=== PATIENT | male | born 1980 ===

== ENCOUNTER 2017-07-27 21:47 | Inpatient (IN) | payer OTHER ==
[2017-07-27] MEDS ORDERED: HYDROmorphone 0.5 mg/0.5 ml ISec IVP STA (22:05)
--- NOTE | 2017-07-27 22:33 | ED PDOC ---
Arrival/HPI - General Chief Complaint: Abdominal Pain Time Seen by Provider: 07/27/17 21:53 Historian: Patient - History of Present Illness Narrative History of Present Illness (Text): 07/27/17 22:05 36 year old male who presents to the Emergency department complaining of abdominal pain and hematochezia. Patient states 1 week prior he began experiencing bloody bowel movements, which has been consistent over the past week. Patient states 2 hours prior to arrival he had severe left flank pain radiating to left inguinal region. Patient reports associated chest tightness. Patient rates pain 10/10. Patient denies any dysuria, fever, chills, nausea, vomiting, or any other complaints. Time/Duration: 1 week Symptom Onset: Gradual Symptom Course: Unchanged Activities at Onset: Light Context: Home Past Medical History - Provider Review Nursing Documentation Reviewed: Yes - Infectious Disease Hx of Infectious Diseases: None - Cardiac Hx Cardiac Disorders: Yes Hx Heart Murmur: Yes Other/Comment: left ventricle blockage - Pulmonary Hx Respiratory Disorders: No - Neurological Hx Neurological Disorder: No - HEENT Hx HEENT Disorder: No - Renal Hx Renal Disorder: No - Endocrine/Metabolic Hx Endocrine Disorders: No - Hematological/Oncological Hx Blood Disorders: No - Integumentary Hx Dermatological Disorder: No Hx Basal Cell Carcinoma: No - Musculoskeletal/Rheumatological Hx Musculoskeletal Disorders: No - Gastrointestinal Hx Gastrointestinal Disorders: No Other/Comment: appendectomy - Genitourinary/Gynecological Hx Genitourinary Disorders: No - Psychiatric Hx Psychophysiologic Disorder: No Hx Substance Use: No - Surgical History Hx Appendectomy: Yes Other/Comment: vasectomy 2009, nose sx - Anesthesia Hx Anesthesia: Yes Hx Anesthesia Reactions: No Hx Malignant Hyperthermia: No Family/Social History - Physician Review Nursing Documentation Reviewed: Yes Family/Social History: Unknown Family HX Smoking Status: Never Smoked Hx Alcohol Use: Yes Hx Substance Use: No Allergies/Home Meds Allergies/Adverse Reactions: Allergies No Known Allergies Allergy (Verified 12/26/15 16:24) Review of Systems - Physician Review All systems were reviewed & negative as marked: Yes - Review of Systems Constitutional: Normal. absent: Fevers Eyes: Normal ENT: Normal Respiratory: Normal. absent: SOB, Cough Cardiovascular: Chest Pain Gastrointestinal: Abdominal Pain, Hematochezia. absent: Diarrhea, Nausea, Vomiting Genitourinary Male: Normal. absent: Dysuria, Frequency, Hematuria, Urinary Output Changes Musculoskeletal: Back Pain. absent: Neck Pain Skin: Normal. absent: Rash Neurological: Normal. absent: Headache, Dizziness Endocrine: Normal Hemo/Lymphatic: Normal Psychiatric: Normal Physical Exam Vital Signs Reviewed: Yes Vital Signs Temp Pulse Resp BP Pulse Ox 07/27/17 21:57 98.0 F 65 19 141/89 99 Temperature: Afebrile Blood Pressure: Normal Pulse: Regular Respiratory Rate: Normal Appearance: Positive for: Well-Appearing, Non-Toxic, Comfortable Pain Distress: None Mental Status: Positive for: Alert and Oriented X 3 - Systems Exam Head: Present: Atraumatic, Normocephalic Pupils: Present: PERRL Extroacular Muscles: Present: EOMI Conjunctiva: Present: Normal Mouth: Present: Moist Mucous Membranes Neck: Present: Normal Range of Motion Respiratory/Chest: Present: Clear to Auscultation, Good Air Exchange. No: Respiratory Distress, Accessory Muscle Use Cardiovascular: Present: Regular Rate and Rhythm, Normal S1, S2. No: Murmurs Abdomen: Present: Tenderness (Abdominal tenderness to palpation, most severe in LUQ and LLQ), Normal Bowel Sounds. No: Distention, Peritoneal Signs, Rebound Back: Present: Normal Inspection Upper Extremity: Present: Normal Inspection. No: Cyanosis, Edema Lower Extremity: Present: Normal Inspection. No: Edema Neurological: Present: GCS=15, CN II-XII Intact, Speech Normal Skin: Present: Warm, Dry, Normal Color. No: Rashes Psychiatric: Present: Alert, Oriented x 3, Normal Insight, Normal Concentration Medical Decision Making ED Course and Treatment: 07/27/17 22:05 Impression: 36 year old male complaining of blood bowel movements, left flank pain radiating to left inguinal, and chest tightness. Plan: -- Urinalysis -- Dilaudid -- Reassess and disposition Progress Notes: - Medication Orders Current Medication Orders: Discontinued Medications Hydromorphone HCl (Dilaudid) 1 mg IVP STAT STA Stop: 07/27/17 22:06 Last Admin: 07/27/17 22:13 Dose: 1 mg MELONIE Pain Assessment Document 07/27/17 22:13 ND (Rec: 07/27/17 22:14 ND [facility] [id number] Pain Reassessment Is this a pain reassessment? No Presence of Pain Presence of Pain Yes Pain Scale Used Pain Scale Used Numeric Location Left, Right or Bilateral Bilateral Pain Location Body Site Abdomen IVP Administration Document 07/27/17 22:13 ND (Rec: 07/27/17 22:14 ND [facility] [id number]) Charges for Administration # of IVP Administrations 1 - Scribe Statement The provider has reviewed the documentation as recorded by the Scribe Daniella Magana All medical record entries made by the Scribe were at my direction and personally dictated by me. I have reviewed the chart and agree that the record accurately reflects my personal performance of the history, physical exam, medical decision making, and the department course for this patient. I have also personally directed, reviewed, and agree with the discharge instructions and disposition. Disposition/Present on Arrival - Present on Arrival History of DVT/PE: No History of Uncontrolled Diabetes: No Urinary Catheter: No History of Decub. Ulcer: No History Surgical Site Infection Following: None - Disposition Forms: [employer] (Ukrainian)
--- NOTE | 2017-07-27 23:07 | ED PDOC ---
Physical Exam Vital Signs Temp Pulse Resp BP Pulse Ox 07/27/17 21:57 98.0 F 65 19 141/89 99 Medical Decision Making ED Course and Treatment: 07/27/17 23:00 Case endorsed to me by Dr. Zhu, pending UA, re-assessment, and final disposition. Pt, whose past medical history includes appendectomy, presented for left flank pain radiating to left groin. 07/28/17 05:03 CT Abdomen and Pelvis shows: Lower thorax: Bibasilar right middle nonspecific infiltrates are present, consistent with atelectasis or pneumonia. Small hiatal hernia. ABDOMEN:Limitations: Absence of IV contrast decreases sensitivity for detecting solid organ and vascular abnormality and injury. Liver: Unremarkable. Gallbladder and bile ducts: Hyperdense gallbladder sludge versus stones versus artifact. Pancreas: Unremarkable. No ductal dilation. Spleen: Unremarkable. No splenomegaly. Adrenals: Unremarkable. No mass. Kidneys and ureters: Left perinephric inflammatory change with moderate left hydroureteronephrosis and a 5 mm left upper mid ureter stone seen on image 96 series 3 and a 4 mm left mid ureteral stone seen on image 99 series 3 representing multifocal acute obstructive uropathy. Nonobstructive bilateral renal stones measuring 2-5 mm. Stomach and bowel: Diverticulosis. No obstruction. No mucosal thickening. Appendix: Appendectomy. PELVIS: Bladder: Partially distended bladder. Reproductive: Enlarged prostate gland. Vasectomy. ABDOMEN and PELVIS: Intraperitoneal space: Unremarkable. No free air. No significant fluid collection. Bones/joints: No acute fracture. No dislocation. Soft tissues: There is a fat-containing umbilical hernia. Vasculature: Unremarkable. No abdominal aortic aneurysm. Lymph nodes: Unremarkable. No enlarged lymph nodes. IMPRESSION: 1.Left perinephric inflammatory change with moderate left hydroureteronephrosis and a 5 mm left upper mid ureter stone seen on image 96 series 3 and a 4 mm left mid ureteral stone seen on image 99 series 3 representing multifocal acute obstructive uropathy. 2. Nonobstructive renal stones. 07/28/17 05:05 Case discussed with medical record transcriber production roustabout and Dr. Hernandez, who are aware and agrees with plan. Pt will be admitted to [facility] for nephrolithiasis, renal colic, and intractable pain under the hospitalist service. - Lab Interpretations Lab Results: 07/28/17 00:30 07/28/17 00:30 Lab Results 07/28/17 01:44: Urine Color Yellow, Urine Appearance Sl cloudy, Urine pH 7.0, Ur Specific [place] 1.020, Urine Protein 30 H, Urine Glucose (UA) Negative, Urine Ketones Negative, Urine Blood Large H, Urine Nitrate Negative, Urine Bilirubin Negative, Urine Urobilinogen 0.2, Ur Leukocyte Esterase Negative, Urine RBC Tntc, Urine WBC 0 - 2, Ur Epithelial Cells 0 - 2, Urine Bacteria Occ 07/28/17 00:30: WBC 11.2 H, RBC 5.10, Hgb 15.4, Hct 43.8, MCV 85.9, MCH 30.2, MCHC 35.2, RDW 12.8, Plt Count 255, MPV 9.4 07/28/17 00:30: Sodium 142, Potassium 3.8, Chloride 105, Carbon Dioxide 23, Anion Gap 18, BUN 16, Creatinine 1.1, Est GFR ( Amer) > 60, Est GFR (Non- Af Amer) > 60, Random Glucose 108, Calcium 9.8, Total Bilirubin 0.7, AST 34, ALT 62 H, Alkaline Phosphatase 82, Total Protein 7.8, Albumin 4.7, Globulin 3.2 , Albumin/Globulin Ratio 1.5, Lipase 68 I have reviewed the lab results: Yes - RAD Interpretation Radiology Orders: 07/28/17 02:38 ABD & PELVIS W/O PO OR IV CONT [CT] Stat Laborer Carpentry Dock: Radiologist - Medication Orders Current Medication Orders: Discontinued Medications Hydromorphone HCl (Dilaudid) 1 mg IVP STAT STA Stop: 07/27/17 22:06 Last Admin: 07/27/17 22:13 Dose: 1 mg MAR Pain Assessment Document 07/27/17 22:13 ND (Rec: 07/27/17 22:14 ND [facility] [id number] Pain Reassessment Is this a pain reassessment? No Presence of Pain Presence of Pain Yes Pain Scale Used Pain Scale Used Numeric Location Left, Right or Bilateral Bilateral Pain Location Body Site Abdomen IVP Administration Document 07/27/17 22:13 ND (Rec: 07/27/17 22:14 ND [facility] [id number]) Charges for Administration # of IVP Administrations 1 Hydromorphone HCl (Dilaudid) 1 mg IVP STAT STA Stop: 07/28/17 01:14 Last Admin: 07/28/17 01:44 Dose: 1 mg MAR Pain Assessment Document 07/28/17 01:44 CNR (Rec: 07/28/17 01:44 CNR [id number]) Pain Reassessment Is this a pain reassessment? Yes Location Pain Location Body Site Abdomen IVP Administration Document 07/28/17 01:44 CNR (Rec: 07/28/17 01:44 CNR [id number]) Charges for Administration # of IVP Administrations 1 Hydromorphone HCl (Dilaudid) 1 mg IVP STAT STA Stop: 07/28/17 04:11 Last Admin: 07/28/17 04:27 Dose: 1 mg MAR Pain Assessment Document 07/28/17 04:27 CNR (Rec: 07/28/17 04:27 CNR [id number]) Pain Reassessment Is this a pain reassessment? Yes IVP Administration Document 07/28/17 04:27 CNR (Rec: 07/28/17 04:27 CNR [id number]) Charges for Administration # of IVP Administrations 1 Sodium Chloride (Sodium Chloride 0.9%) 1,000 mls @ 999 mls/hr IV .Q1H1M STA Stop: 07/28/17 02:14 Last Admin: 07/28/17 01:20 Dose: 999 mls/hr eMAR Start Stop Document 07/28/17 01:20 CNR (Rec: 07/28/17 01:20 CNR [id number]) Intravenous Solution Start Date 07/28/17 Start Time 01:20 Disposition/Present on Arrival - Present on Arrival Any Indicators Present on Arrival: No History of DVT/PE: No History of Uncontrolled Diabetes: No Urinary Catheter: No History of Decub. Ulcer: No History Surgical Site Infection Following: None - Disposition Have Diagnosis and Disposition been Completed?: Yes Diagnosis: Renal colic, Intractable pain Disposition: HOSPITALIZED Disposition Time: 05:14 Patient Plan: Admission Patient Problems: Current Active Problems Problem Status Onset Intractable pain Acute Renal colic Acute Condition: STABLE
[2017-07-28 00:52] LABS: HEMOGLOBIN 15.4 g/dL (14.0-18.0); MEAN CELL VOLUME 85.9 fl (80.0-105.0); MEAN CORPUSCULAR HEMOGLOBIN 30.2 pg (25.0-35.0); MEAN CORPUSCULAR HGB CONC 35.2 g/dl (31.0-37.0); MEAN PLATELET VOLUME 9.4 fl (7.0-11.0); RBC 5.1 10^6/uL (3.5-6.1); RED CELL DISTRIBUTION WIDTH 12.8 % (11.5-14.5); WHITE BLOOD COUNT 11.2 10^3/ul (4.5-11.0)
[2017-07-28 00:53] LABS: ALB/GLOB RATIO 1.5 (1.1-1.8); ALBUMIN 4.7 g/dL (3.0-4.8); ALT/SGPT 62 U/L (7-56); AST/SGOT 34 U/L (17-59); BLOOD UREA NITROGEN 16 mg/dL (7-21); CALCIUM 9.8 mg/dL (8.4-10.5); GFR AFRICAN-AMERICAN > 60; GFR NON-AFRICAN AMERICAN > 60; LIPASE 68 U/L (23-300)
[2017-07-28] MEDS ORDERED: HYDROmorphone 0.5 mg/0.5 ml ISec IVP STA ×2 (01:13→04:10)
[2017-07-28] MEDS ORDERED: Sodium Chloride 0.9% 1,000 ML IV STA (01:14)
[2017-07-28 02:20] LABS: URINE BILIRUBIN NEGATIVE (NEGATIVE); URINE BLOOD LARGE (NEGATIVE); URINE GLUCOSE (UA) NEGATIVE (NEGATIVE); URINE LEUKOCYTE ESTERASE NEGATIVE Leu/uL (NEGATIVE); URINE NITRATE NEGATIVE (NEGATIVE); URINE PROTEIN 30 mg/dL (<30 mg/dL); URINE UROBILINOGEN 0.2 E.U./dL (<1 E.U./dL)
[2017-07-28 02:37] LABS: URINE APPEARANCE SL CLOUDY (CLEAR); URINE COLOR YELLOW (YELLOW)
[2017-07-28 02:38] LABS: URINE EPITHELIAL CELLS 0 - 2 /hpf (0-5); URINE RBC TNTC /hpf (0-2); URINE WBC 0 - 2 /hpf (0-6)
[2017-07-28 02:39] LABS: URINE BACTERIA OCC (NEG)
--- NOTE | 2017-07-28 05:01 | CT ---
EXAM: CT Abdomen and Pelvis Without Intravenous Contrast CLINICAL HISTORY: 36 years old, male; Pain; Abdominal pain; Flank; Left; Prior surgery; Surgery type: Appendectomy, vasectomy; Additional info: Left flank pain TECHNIQUE: Axial computed tomography images of the abdomen and pelvis without intravenous contrast. All CT scans at this facility use one or more dose reduction techniques, viz.: automated exposure control; ma/kV adjustment per patient size (including targeted exams where dose is matched to indication; i.e. head); or iterative reconstruction technique. 619 images are submitted. Axial images are submitted and lung windows. Coronal and sagittal reformatted images were created and reviewed. COMPARISON: No relevant prior studies available. FINDINGS: Lower thorax: Bibasilar right middle nonspecific infiltrates are present, consistent with atelectasis or pneumonia. Small hiatal hernia. ABDOMEN:Limitations: Absence of IV contrast decreases sensitivity for detecting solid organ and vascular abnormality and injury. Liver: Unremarkable. Gallbladder and bile ducts: Hyperdense gallbladder sludge versus stones versus artifact. Pancreas: Unremarkable. No ductal dilation. Spleen: Unremarkable. No splenomegaly. Adrenals: Unremarkable. No mass. Kidneys and ureters: Left perinephric inflammatory change with moderate left hydroureteronephrosis and a 5 mm left upper mid ureter stone seen on image 96 series 3 and a 4 mm left mid ureteral stone seen on image 99 series 3 representing multifocal acute obstructive uropathy. Nonobstructive bilateral renal stones measuring 2-5 mm. Stomach and bowel: Diverticulosis. No obstruction. No mucosal thickening. Appendix: Appendectomy. PELVIS: Bladder: Partially distended bladder. Reproductive: Enlarged prostate gland. Vasectomy. ABDOMEN and PELVIS: Intraperitoneal space: Unremarkable. No free air. No significant fluid collection. Bones/joints: No acute fracture. No dislocation. Soft tissues: There is a fat-containing umbilical hernia. Vasculature: Unremarkable. No abdominal aortic aneurysm. Lymph nodes: Unremarkable. No enlarged lymph nodes. IMPRESSION: 1.Left perinephric inflammatory change with moderate left hydroureteronephrosis and a 5 mm left upper mid ureter stone seen on image 96 series 3 and a 4 mm left mid ureteral stone seen on image 99 series 3 representing multifocal acute obstructive uropathy. 2. Nonobstructive renal stones.
--- NOTE | 2017-07-28 06:10 | CP.PCM.HP ---
<Rivas Ball - Last Filed: 07/28/17 06:41> History of Present Illness - History of Present Illness History of Present Illness: Rivas Ball PGY IM H&P Note for Hospitalist Service cc: L flank pain and n/v Mr. Friend is a 36 yo M with a PMH of nephrolithiasis, heart murmur as a child that resolved who presented with L flank pain, n/v, and fevers/chills x1 day. Patient states that the pain is achy in nature and radiates from his L back to his L groin and is associated with difficulty passing urine, and states that he had a similar episodes last week that was less severe. Patient was evaluated for R kidney stones 2 years ago and was told that they were small enough to pass on their own and he never strained the urine and doesn't know if they passed but had no issues since then. Patient also states that when the pain occurs, he strained with a BM and had a little bright red blood when he wiped. Patient states that he sees Dr. Ashli Barboza for scrotal pain that he experiences at times. Patient denies chest pain, shortness of breath, weakness, numbness/ tingling, changes in vision/hearing, headaches. 12-pt ROS was reviewed and is otherwise unremarkable. PMH: as above PSH: appendectomy, vasectomy, nose repair Meds: none Allergies: PCN SHx: denies tobacco or substance use; drinks beers Present on Admission - Present on Admission Any Indicators Present on Admission: No Review of Systems - Review of Systems All systems: reviewed and no additional remarkable complaints except (as per HPI ) Past Patient History - Infectious Disease Hx of Infectious Diseases: None - Past Social History Smoking Status: Never Smoked Alcohol: Occasional Drugs: Denies Home Situation {Lives}: With Family - CARDIAC Hx Cardiac Disorders: Yes Hx Heart Murmur: Yes Other/Comment: left ventricle blockage - PULMONARY Hx Respiratory Disorders: No - NEUROLOGICAL Hx Neurological Disorder: No - HEENT Hx HEENT Problems: No - RENAL Hx Kidney Stones: Yes - ENDOCRINE/METABOLIC Hx Endocrine Disorders: No - HEMATOLOGICAL/ONCOLOGICAL Hx Blood Disorders: No - INTEGUMENTARY Hx Dermatological Problems: No Hx Basil Cell: No - MUSCULOSKELETAL/RHEUMATOLOGICAL Hx Musculoskeletal Disorders: No - GASTROINTESTINAL Hx Gastrointestinal Disorders: No Other/Comment: appendectomy - GENITOURINARY/GYNECOLOGICAL Hx Genitourinary Disorders: No - PSYCHIATRIC Hx Psychophysiologic Disorder: No Hx Substance Use: No - SURGICAL HISTORY Hx Appendectomy: Yes Other/Comment: vasectomy 2009, nose sx - ANESTHESIA Hx Anesthesia: Yes Hx Anesthesia Reactions: No Hx Malignant Hyperthermia: No Meds Allergies/Adverse Reactions: Allergies Allergy/AdvReac Type Severity Reaction Status Date / Time Penicillins AdvReac NAUSEA Verified 07/28/17 06:52 Physical Exam - Constitutional Appears: Well, Non-toxic, No Acute Distress - Head Exam Head Exam: NORMAL INSPECTION - Eye Exam Eye Exam: EOMI, Normal appearance, PERRL - ENT Exam ENT Exam: Mucous Membranes Moist - Neck Exam Neck exam: Positive for: Normal Inspection - Respiratory Exam Respiratory Exam: Clear to Auscultation Bilateral, NORMAL BREATHING PATTERN. absent: Rales, Rhonchi, Wheezes - Cardiovascular Exam Cardiovascular Exam: RRR, +S1, +S2. absent: Systolic Murmur - GI/Abdominal Exam GI & Abdominal Exam: Normal Bowel Sounds, Soft, Tenderness (deep palpation LLQ ) . absent: Distended - Extremities Exam Extremities exam: Positive for: full ROM, normal inspection. Negative for: pedal edema - Back Exam Back exam: NORMAL INSPECTION. absent: CVA tenderness (L), CVA tenderness (R) - Neurological Exam Neurological exam: Alert, Oriented x3 - Psychiatric Exam Psychiatric exam: Normal Affect, Normal Mood - Skin Skin Exam: Normal Color, Warm Results - Vital Signs Recent Vital Signs: Last Vital Signs Temp 98.0 F 07/27/17 21:57 Pulse 74 07/28/17 04:26 Resp 16 07/28/17 04:26 BP 151/79 H 07/28/17 04:26 Pulse Ox 98 07/28/17 04:26 - Labs Result Diagrams: 07/28/17 00:30 07/28/17 00:30 Assessment & Plan - Assessment and Plan (Free Text) Assessment: 36 yo M with a PMH of nephrolithiasis and heart murmur as a child that resolved , who presented with L flank pain, n/v, and fevers/chills x1 day 2/2 moderate left hydroureteronephrosis and multifocal acute obstructive uropathy. Plan: 1. L hydronephrosis w/ obstructing stones - CT: Left perinephric inflammatory change with moderate left hydroureteronephrosis and a 5 mm left upper mid ureter stone and a 4 mm left mid ureteral stone representing multifocal acute obstructive uropathy - NPO - NS @ 150 - Flomax - strain urine - pain: motrin and morphine PRN - Zofran PRN n/v - tylenol PRN fevers - colace for stool softening - advance diet per uro recs - Urology consulted, recs appreciated PTX/SCDs for DVT/GI PPX Patient was seen, examined and discussed with attending, Dr. David Ball PGY1 <Dedrick Hernandez - Last Filed: 07/28/17 07:25> Results - Vital Signs Recent Vital Signs: Last Vital Signs Temp 98.0 F 07/27/17 21:57 Pulse 66 07/28/17 06:16 Resp 16 07/28/17 06:16 BP 122/61 07/28/17 06:16 Pulse Ox 94 L 07/28/17 06:16 - Labs Result Diagrams: 07/28/17 00:30 07/28/17 00:30 Attending/Attestation - Attestation I have personally seen and examined this patient.: Yes I have fully participated in the care of the patient.: Yes I have reviewed all pertinent clinical information: Yes Notes (Text): 07/28/17 07:24 Agree with history, physical examination, assessment and plan. Patient was seen when he was in bed # 4 in the ER.
[2017-07-28] MEDS: Pantoprazole 40 mg EC Tab PO SCH (06:52)
[2017-07-28] MEDS: Sodium Chloride 0.9% 1,000 ML IV SCH ×3 (06:52→22:24)
[2017-07-28] MEDS: Morphine 2 mg/ml ISec IVP PRN ×4 (10:00→22:19)
[2017-07-28] MEDS: levoFLOXacin 500 mg in D5W 500 MG/100 ML BAG IVPB SCH (10:35)
[2017-07-28 12:05] VITALS: BMI 25.7
[2017-07-29] MEDS: Sodium Chloride 0.9% 1,000 ML IV SCH ×2 (02:56→08:42)
[2017-07-29] MEDS: Morphine 2 mg/ml ISec IVP PRN ×3 (03:53→20:45)
[2017-07-29] MEDS: Pantoprazole 40 mg EC Tab PO SCH (05:14)
[2017-07-29 07:37] LABS: HEMOGLOBIN 13.9 g/dL (14.0-18.0); MEAN CELL VOLUME 86.4 fl (80.0-105.0); MEAN CORPUSCULAR HGB CONC 34.7 g/dl (31.0-37.0); MEAN PLATELET VOLUME 9.1 fl (7.0-11.0); RBC 4.64 10^6/uL (3.5-6.1); RED CELL DISTRIBUTION WIDTH 12.9 % (11.5-14.5); WHITE BLOOD COUNT 9.6 10^3/ul (4.5-11.0)
[2017-07-29 08:02] LABS: ALB/GLOB RATIO 1.3 (1.1-1.8); ALBUMIN 3.7 g/dL (3.0-4.8); ALT/SGPT 45 U/L (7-56); AST/SGOT 19 U/L (17-59); BLOOD UREA NITROGEN 13 mg/dL (7-21); CALCIUM 8.7 mg/dL (8.4-10.5); GFR AFRICAN-AMERICAN > 60; GFR NON-AFRICAN AMERICAN 57
[2017-07-29] MEDS: levoFLOXacin 500 mg in D5W 500 MG/100 ML BAG IVPB SCH (09:05)
[2017-07-29] MEDS ORDERED: HYDROmorphone 0.5 mg/0.5 ml ISec IVP PRN (13:23)
[2017-07-29] MEDS ORDERED: Lactated Ringer's 1,000 ML IV SCH (13:30)
[2017-07-29] MEDS ORDERED: Propofol 10 mg/ml Inj (20 ML) ONE ×2 (13:41→14:31)
[2017-07-29] MEDS ORDERED: Midazolam 2 MG/2 ML VIAL ONE (13:42)
[2017-07-29 13:48] VITALS: RESP 20
[2017-07-29] MEDS ORDERED: Iohexol 240 (50 ml) ONE (13:49)
[2017-07-29] MEDS ORDERED: Oxycodone/Acetaminophen 5/325 mg Tab PO PRN (15:04)
[2017-07-29] MEDS ORDERED: Gentamicin 80mg/50ml NS 80 MG/50 ML BAG IVPB ONE (15:49)
[2017-07-29] MEDS ORDERED: HYDROmorphone 0.5 mg/0.5 ml ISec ONE (15:56)
[2017-07-29] MEDS ORDERED: HYDROmorphone 0.5 mg/0.5 ml ISec IVP ONE (15:57)
--- NOTE | 2017-07-29 16:01 | RAD ---
PROCEDURE: Retrograde pyelogram HISTORY: R/O STONES COMPARISON: TECHNIQUE: Fluoroscopy was provided in the operating room. 57.7 seconds of fluoro time were used. Seventeen images submitted FINDINGS: Study shows placement of a left ureteral stent. Study was performed by Dr. Barboza IMPRESSION: As above
--- NOTE | 2017-07-29 16:59 | CARD ---
APPROVED REPORT EKG Measurement Heart [id number] <Conclusion> Normal sinus rhythm Right bundle branch block Abnormal ECG
--- NOTE | 2017-07-30 03:15 | OP ---
UROLOGY OPERATIVE REPORT PROCEDURE DATE: PREOPERATIVE DIAGNOSES: Urolithiasis, hydronephrosis, severe renal colic, and hematuria. POSTOPERATIVE DIAGNOSES: Urolithiasis, hydronephrosis, severe renal colic, hematuria, very impacted mid ureteral stone, massive amount of hydronephrosis. COMPLICATIONS: There were no complications. PROCEDURE: Cystoscopy, left retrograde pyelogram, and insertion of left double J-stent (very difficult, but we were able to get a stent in; in the end, we got a 3.8-Ivorian 20 to 30 cm stent), I was not able to get a 6-Ivorian in. See the body of the report. ESTIMATED BLOOD LOSS: Less than 15 mL. double J-stent in good location; very small, very thin, but I know it is in good location to film; multiple, multiple films were taken. INDICATIONS: See history and physical for further details and consultation. A very pleasant gentleman here for the above procedure. We discussed risks, benefits, and alternatives after having done the procedure and where the stone was located, I am very glad that we did not work further. It is an extremely obstructed cysto. DESCRIPTION OF PROCEDURE: After obtaining informed consent, the patient was placed on the table. Routine monitor was placed. Time-out was called to confirm the patient, positioning. The patient is already on antibiotics. We also gave him initially antibiotics, he was given Levaquin. We are going to add gentamicin. We called the time-out to confirm the patient, positioning. Rn New Grad film was . The stone is identified. Multiple pictures were taken hopefully of the same. Cystoscope via urethra, anterior is normal. No strictures. Verumontanum is minimally occlusive about 1 to 2 cm. The ureter was identified, both left and right side which were pictured. Retrograde pyelogram was performed. There is actually tremendous amount of hydro above the stone. At this point, I passed the wire up to the kidney, wire actually went up fairly easily. At this point, we tried to pass the double J-stent to 6-Ivorian multi length catheter, but we could not get it pass the stone and it keep getting stuck right exactly where the stone is. I felt at this point, I put a second wire in, that went in also. I just looked at that we have definite safety wire. We worked diligently but still could not get a 6-Ivorian in, so we now turned over to 3.8. Then the stone was getting stuck. The stent was getting stuck right where the stone is. I pulled up with little traction-countertraction sort of move at the stone under fluoro pulling up the second wire and just at that second advancing the 3.8-Ivorian double J-stent went pass the stone, no problem with it. We went up to the kidney, no problem. Second wire was out, we gently held the first wire. We have double J-stent in good location. At this point, the bladder is empty, cystoscope was removed. The patient tolerated the procedure without complications. Addendum to this note, we are going to plan to give the patient antibiotics. We will give him Flomax. We will strain the urine, see how the patient does clinically. Risks and benefits were discussed further and we will plan to get a repeat ureteroscopy and laser lithotripsy or plan for ESWL therapy. Further plans will follow. From Urology standpoint, once the patient is stabilized, he will be able to be discharged home on antibiotics on Flomax and pain medicines. Denver Barbzoa MD
[2017-07-30] MEDS: Pantoprazole 40 mg EC Tab PO SCH (06:04)
[2017-07-30] MEDS: Sodium Chloride 0.9% 1,000 ML IV SCH (06:05)
--- NOTE | 2017-07-30 07:12 | CP.PCM.PN ---
<Ayden Vo - Last Filed: 07/30/17 07:13> Subjective - Date & Time of Evaluation Date of Evaluation: 07/29/17 Time of Evaluation: 06:00 - Subjective Subjective: Patient seen and evaluated bedside. Patient still complaining of L sided flank pain to radiation of left groin area without much improvement. Patient did not have any acute events overnight. NO chest pain, shortness of breath but complained of nausea and 2 episodes of non bloody vomiting. Patient aware of plan of procedure today with Dr. Mello. Objective - Vital Signs/Intake and Output Vital Signs (last 24 hours): Temp Pulse Resp BP Pulse Ox 97.9 F 60 20 128/61 97 07/29/17 16:28 07/29/17 16:28 07/29/17 16:28 07/29/17 16:28 07/29/17 16:28 Intake and Output: 07/30/17 07/30/17 06:59 18:59 Intake Total 780 Output Total 2300 Balance -1520 - Medications Medications: Current Medications Acetaminophen (Tylenol 325mg Tab) 650 mg PO Q4 PRN PRN Reason: Fever >100.4 F Docusate Sodium (Colace) 100 mg PO BID [facility] Last Admin: 07/29/17 17:39 Dose: 100 mg Sodium Chloride (Sodium Chloride 0.9%) 1,000 mls @ 150 mls/hr IV .Q6H40M [facility] Last Admin: 07/30/17 06:05 Dose: 150 mls/hr Levofloxacin/Dextrose (Levaquin 500mg) 500 mg in 100 mls @ 100 mls/hr IVPB DAILY [facility] PRN Reason: Protocol Last Admin: 07/29/17 09:05 Dose: 100 mls/hr Gentamicin Sulfate 80 mg/ (Sodium Chloride) 102 mls @ 100 mls/hr IVPB Q24H [facility] PRN Reason: Protocol Last Admin: 07/29/17 15:15 Dose: 100 mls/hr Ibuprofen (Motrin Tab) 400 mg PO Q4H PRN PRN Reason: Pain, Mild (1-3) Last Admin: 07/29/17 03:54 Dose: 400 mg Morphine Sulfate (Morphine) 2 mg IVP Q4H PRN PRN Reason: Pain, severe (8-10) Last Admin: 07/29/17 20:45 Dose: 2 mg Ondansetron HCl (Zofran Inj) 4 mg IVP Q4H PRN PRN Reason: Nausea/Vomiting Last Admin: 07/29/17 03:53 Dose: 4 mg Ondansetron HCl (Zofran Inj) 4 mg IVP Q8H PRN PRN Reason: Nausea/Vomiting Oxycodone/Acetaminophen (Percocet 5/325 Mg Tab) 1 tab PO Q4H PRN PRN Reason: Bladder Spasm Stop: 08/01/17 15:05 Pantoprazole Sodium (Protonix Ec Tab) 40 mg PO 0600 [facility] Last Admin: 07/30/17 06:04 Dose: 40 mg Phenazopyridine HCl (Pyridium) 200 mg PO PC [facility] Last Admin: 07/29/17 17:39 Dose: 200 mg Tamsulosin HCl (Flomax) 0.4 mg PO DAILY [facility] Last Admin: 07/29/17 17:39 Dose: 0.4 mg - Labs Labs: 07/29/17 06:45 07/29/17 06:45 - Constitutional Appears: Non-toxic - Head Exam Head Exam: ATRAUMATIC, NORMAL INSPECTION, NORMOCEPHALIC - Eye Exam Eye Exam: EOMI, Normal appearance, PERRL - ENT Exam ENT Exam: Mucous Membranes Moist - Neck Exam Neck Exam: absent: Lymphadenopathy, Tenderness - Respiratory Exam Respiratory Exam: Clear to Ausculation Bilateral, NORMAL BREATHING PATTERN - Cardiovascular Exam Cardiovascular Exam: REGULAR RHYTHM, +S1, +S2 - GI/Abdominal Exam GI & Abdominal Exam: Soft, Normal Bowel Sounds - Exam Additional comments: groin tender to palpation - Extremities Exam Extremities Exam: Normal Inspection - Back Exam Back Exam: CVA tenderness (L) - Neurological Exam Neurological Exam: Alert, Awake, Oriented x3 - Psychiatric Exam Psychiatric exam: Normal Affect - Skin Skin Exam: Normal Color, Warm Assessment and Plan - Assessment and Plan (Free Text) Assessment: 36 yo M with a PMH of nephrolithiasis and heart murmur as a child that resolved , who presented with L flank pain, n/v, and fevers/chills x1 day 2/2 moderate left hydroureteronephrosis and multifocal acute obstructive uropathy. Plan: 1. L hydronephrosis w/ obstructing stones - CT: Left perinephric inflammatory change with moderate left hydroureteronephrosis and a 5 mm left upper mid ureter stone and a 4 mm left mid ureteral stone representing multifocal acute obstructive uropathy - NPO - NS @ 150 - Flomax - strain urine - pain: motrin and morphine PRN - Zofran PRN n/v - tylenol PRN fevers - colace for stool softening - advance diet per uro recs - levaquin - Urology consulted, recs appreciated- will have procedure done later on today PTX/SCDs for DVT/GI PPX <Farhana Gaming - Last Filed: 07/30/17 07:17> Objective - Vital Signs/Intake and Output Vital Signs (last 24 hours): Temp Pulse Resp BP Pulse Ox 97.9 F 60 20 128/61 97 07/29/17 16:28 07/29/17 16:28 07/29/17 16:28 07/29/17 16:28 07/29/17 16:28 Intake and Output: 07/30/17 07/30/17 06:59 18:59 Intake Total 780 Output Total 2300 Balance -1520 - Medications Medications: Current Medications Acetaminophen (Tylenol 325mg Tab) 650 mg PO Q4 PRN PRN Reason: Fever >100.4 F Docusate Sodium (Colace) 100 mg PO BID [facility] Last Admin: 07/29/17 17:39 Dose: 100 mg Sodium Chloride (Sodium Chloride 0.9%) 1,000 mls @ 150 mls/hr IV .Q6H40M [facility] Last Admin: 07/30/17 06:05 Dose: 150 mls/hr Levofloxacin/Dextrose (Levaquin 500mg) 500 mg in 100 mls @ 100 mls/hr IVPB DAILY [facility] PRN Reason: Protocol Last Admin: 07/29/17 09:05 Dose: 100 mls/hr Gentamicin Sulfate 80 mg/ (Sodium Chloride) 102 mls @ 100 mls/hr IVPB Q24H [facility] PRN Reason: Protocol Last Admin: 07/29/17 15:15 Dose: 100 mls/hr Ibuprofen (Motrin Tab) 400 mg PO Q4H PRN PRN Reason: Pain, Mild (1-3) Last Admin: 07/29/17 03:54 Dose: 400 mg Morphine Sulfate (Morphine) 2 mg IVP Q4H PRN PRN Reason: Pain, severe (8-10) Last Admin: 07/29/17 20:45 Dose: 2 mg Ondansetron HCl (Zofran Inj) 4 mg IVP Q4H PRN PRN Reason: Nausea/Vomiting Last Admin: 07/29/17 03:53 Dose: 4 mg Ondansetron HCl (Zofran Inj) 4 mg IVP Q8H PRN PRN Reason: Nausea/Vomiting Oxycodone/Acetaminophen (Percocet 5/325 Mg Tab) 1 tab PO Q4H PRN PRN Reason: Bladder Spasm Stop: 08/01/17 15:05 Pantoprazole Sodium (Protonix Ec Tab) 40 mg PO 0600 [facility] Last Admin: 07/30/17 06:04 Dose: 40 mg Phenazopyridine HCl (Pyridium) 200 mg PO PC [facility] Last Admin: 07/29/17 17:39 Dose: 200 mg Tamsulosin HCl (Flomax) 0.4 mg PO DAILY [facility] Last Admin: 07/29/17 17:39 Dose: 0.4 mg - Labs Labs: 07/29/17 06:45 07/29/17 06:45 Attending/Attestation - Attestation I have personally seen and examined this patient.: Yes I have fully participated in the care of the patient.: Yes I have reviewed all pertinent clinical information, including history, physical exam and plan: Yes Notes (Text): 07/30/17 07:15 36 year old male with past medical history of nephrolithiasis who presented with left flank pain with nausea and vomiting. He was found to have left hydroureteronephrosis with 5 mm and 4 mm left upper to mid ureteral stones. Continue with NPO, IVF, flomax, analgesics and antibiotics. Patient is being followed by urology and going to procedure today. Farhana Gaming MD Hospitalist.
[2017-07-30 07:53] LABS: HEMOGLOBIN 13.7 g/dL (14.0-18.0); MEAN CELL VOLUME 86.3 fl (80.0-105.0); MEAN CORPUSCULAR HEMOGLOBIN 29.7 pg (25.0-35.0); MEAN CORPUSCULAR HGB CONC 34.4 g/dl (31.0-37.0); MEAN PLATELET VOLUME 8.8 fl (7.0-11.0); RBC 4.61 10^6/uL (3.5-6.1); RED CELL DISTRIBUTION WIDTH 12.8 % (11.5-14.5); WHITE BLOOD COUNT 6.8 10^3/ul (4.5-11.0)
[2017-07-30 08:35] LABS: ALB/GLOB RATIO 1.3 (1.1-1.8); ALBUMIN 3.6 g/dL (3.0-4.8); ALT/SGPT 37 U/L (7-56); AST/SGOT 16 U/L (17-59); BLOOD UREA NITROGEN 12 mg/dL (7-21); CALCIUM 8.8 mg/dL (8.4-10.5); GFR AFRICAN-AMERICAN > 60; GFR NON-AFRICAN AMERICAN > 60
--- NOTE | 2017-07-30 08:44 | PCM.URO ---
Urology Progress Note - Objective Lab Studies: Reviewed (pt is scheduled for [facility] [place] [facility]. pt is for discharge today and is npo after breakfast/ see previous dictated notes) Lab Results Last 24 Hours: Laboratory Results - last 24 hr 07/30/17 07/30/17 07:30 07:30 WBC 6.8 D RBC 4.61 Hgb 13.7 L Hct 39.8 L MCV 86.3 MCH 29.7 MCHC 34.4 RDW 12.8 Plt Count 191 MPV 8.8 Sodium 140 Potassium 3.8 Chloride 104 Carbon Dioxide 27 Anion Gap 12 BUN 12 Creatinine 1.1 Est GFR ( Amer) > 60 Est GFR (Non-Af Amer) > 60 Random Glucose 96 Calcium 8.8 Total Bilirubin 1.0 AST 16 L ALT 37 Alkaline Phosphatase 67 Total Protein 6.4 Albumin 3.6 Globulin 2.8 Albumin/Globulin Ratio 1.3 Intake & Output: Intake & Output 07/29/17 07/30/17 07/30/17 18:59 06:59 18:59 Intake Total 0 780 Output Total 2300 Balance 0 -1520 Intake: IV 0 Oral 780 Output: Urine 2300 Urine, Voided 2300 Other: # Bowel Movements 0 Vital Signs: Vital Signs - 24 hr 07/29/17 07/29/17 07/29/17 13:45 14:43 14:48 Temperature 98.5 F 97.9 F 97.9 F Pulse Rate 61 86 69 Respiratory 20 20 20 Rate Blood Pressure 148/83 85/54 L 99/60 L O2 Sat by Pulse 100 98 98 Oximetry 07/29/17 07/29/17 07/29/17 15:13 15:28 15:43 Temperature 97.9 F 97.9 F 97.9 F Pulse Rate 61 72 71 Respiratory 20 20 20 Rate Blood Pressure 102/63 117/73 128/62 O2 Sat by Pulse 94 L 99 97 Oximetry 07/29/17 07/29/17 07/29/17 15:53 16:13 16:28 Temperature 97.9 F 97.9 F 97.9 F Pulse Rate 65 60 60 Respiratory 20 20 20 Rate Blood Pressure 122/76 128/61 128/61 O2 Sat by Pulse 98 97 97 Oximetry
--- NOTE | 2017-07-30 08:50 | CON ---
DATE: 07/28/2017 UROLOGY CONSULTATION REASON FOR CONSULTATION: Severe left renal colic. HISTORY OF PRESENT ILLNESS: The patient is a very pleasant gentleman with a hydronephrosis and a mid ureteral stone. Just around the iliac crest area. Above the iliac vessels. Urology was consulted for further recommendations and see the plans below. PAST MEDICAL AND SURGICAL HISTORY: As listed on the chart. No history of [place] or CVA. SOCIAL HISTORY: He is , works for [employer] in [place]. He is here with his and his mother at the bedside. PHYSICAL EXAMINATION: GENERAL: In moderate amount of distress. VITAL SIGNS: Within normal limits. Physical examination is essentially unremarkable. LUNGS: Clear. HEART: S1 and S2. ABDOMEN: Soft. No real CVA tenderness. LABORATORY DATA: See chart. CT scan, I have had a chance to review. DIAGNOSIS: Hematuria. PLAN: We discussed the options. We are going to plan for a cystoscopy as early as possible tomorrow, the date is on 07/29/2017 as early as possible if available. In the meantime, I discussed with the patient he is not septic. We will provide analgesics as needed and antiemetic as needed. Strained the urine and that the stone will pass. He may have been passed stones in the past. We discussed all the options, risks and benefits, and alternatives with the patient. We are going to plan to proceed. Thank you for the Urology consultation. Denver Barboza MD
--- NOTE | 2017-07-30 09:00 | PN ---
DATE: 07/29/2017 See history and physical, consultation, operative report. Postop, patient is remaining stable. Vital signs are noted. He is status post cysto and stent insertion for a drastically hydronephrotic kidney. He is overall stable. Urology plans are maintain stent is in place. We will plan for outpatient ureteroscopy, laser lithotripsy, versus outpatient shock wave lithotripsy. Further plans will follow. I explained this all to the patient and also explained today and his mother. Denver Barboza MD
[2017-07-30 09:10] VITALS: BP 104/62; PULSE 58; TEMP 98.1; O2SAT 95
[2017-07-30] MEDS: levoFLOXacin 500 mg in D5W 500 MG/100 ML BAG IVPB SCH (09:19)
--- NOTE | 2017-07-30 11:43 | CP.PCM.DIS ---
Provider - Provider Date of Admission: 07/28/17 05:09 Attending physician: Farhana Gaming MD [facility] - Lab Results Lab Results: Most Recent Lab Values WBC 6.8 10^3/ul (4.5-11.0) D 07/30/17 07:30 RBC 4.61 10^6/uL (3.5-6.1) 07/30/17 07:30 Hgb 13.7 g/dL (14.0-18.0) L 07/30/17 07:30 Hct 39.8 % (42.0-52.0) L 07/30/17 07:30 MCV 86.3 fl (80.0-105.0) 07/30/17 07:30 MCH 29.7 pg (25.0-35.0) 07/30/17 07:30 MCHC 34.4 g/dl (31.0-37.0) 07/30/17 07:30 RDW 12.8 % (11.5-14.5) 07/30/17 07:30 Plt Count 191 10^3/uL (120.0-450.0) 07/30/17 07:30 MPV 8.8 fl (7.0-11.0) 07/30/17 07:30 Sodium 140 mmol/L (132-148) 07/30/17 07:30 Potassium 3.8 mmol/L (3.6-5.0) 07/30/17 07:30 Chloride 104 mmol/L (98-107) 07/30/17 07:30 Carbon Dioxide 27 mmol/L (21-33) 07/30/17 07:30 Anion Gap 12 (10-20) 07/30/17 07:30 BUN 12 mg/dL (7-21) 07/30/17 07:30 Creatinine 1.1 mg/dl (0.8-1.5) 07/30/17 07:30 Est GFR ( Amer) > 60 07/30/17 07:30 Est GFR (Non-Af Amer) > 60 07/30/17 07:30 Random Glucose 96 mg/dL (70-110) 07/30/17 07:30 Calcium 8.8 mg/dL (8.4-10.5) 07/30/17 07:30 Total Bilirubin 1.0 mg/dL (0.2-1.3) 07/30/17 07:30 AST 16 U/L (17-59) L 07/30/17 07:30 ALT 37 U/L (7-56) 07/30/17 07:30 Alkaline Phosphatase 67 U/L (38-126) 07/30/17 07:30 Total Protein 6.4 g/dL (5.8-8.3) 07/30/17 07:30 Albumin 3.6 g/dL (3.0-4.8) 07/30/17 07:30 Globulin 2.8 gm/dL 07/30/17 07:30 Albumin/Globulin Ratio 1.3 (1.1-1.8) 07/30/17 07:30 Lipase 68 U/L (23-300) 07/28/17 00:30 Urine Color Yellow (YELLOW) 07/28/17 01:44 Urine Appearance Sl cloudy (CLEAR) 07/28/17 01:44 Urine pH 7.0 (4.7-8.0) 07/28/17 01:44 Ur Specific [place] 1.020 (1.005-1.035) 07/28/17 01:44 Urine Protein 30 mg/dL (<30 mg/dL) H 07/28/17 01:44 Urine Glucose (UA) Negative mg/dL (NEGATIVE) 07/28/17 01:44 Urine Ketones Negative mg/dL (NEGATIVE) 07/28/17 01:44 Urine Blood Large (NEGATIVE) H 07/28/17 01:44 Urine Nitrate Negative (NEGATIVE) 07/28/17 01:44 Urine Bilirubin Negative (NEGATIVE) 07/28/17 01:44 Urine Urobilinogen 0.2 E.U./dL (<1 E.U./dL) 07/28/17 01:44 Ur Leukocyte Esterase Negative [place]/uL (NEGATIVE) 07/28/17 01:44 Urine RBC Tntc /hpf (0-2) 07/28/17 01:44 Urine WBC 0 - 2 /hpf (0-6) 07/28/17 01:44 Ur Epithelial Cells 0 - 2 /hpf (0-5) 07/28/17 01:44 Urine Bacteria Occ (NEG) 07/28/17 01:44 Discharge Exam - Head Exam Head Exam: ATRAUMATIC, NORMAL INSPECTION, NORMOCEPHALIC Discharge Plan - Discharge Medications Prescriptions: oxyCODONE/Acetaminophen [Percocet 5/325 mg Tab] 1 tab PO Q6 PRN #10 tab PRN Reason: Bladder Spasm - Follow Up Plan Condition: STABLE Disposition: HOME/ ROUTINE Instructions: Kidney Stones (DC), Cystoscopy (DC), Renal Colic (GEN) Additional Instructions: You have been discharged from [facility]. Please f/u with Dr Barboza. You have appointment at [facility] @ 2:30PM Referrals: Daniel Barboza MD [Staff Provider] -
== END 2017-07-30 13:04 | disposition home or self-care (01) | DRG 324 ==
LOC: ED 21:47 → ERH 07-28 05:09 → 5RSO 07-28 12:15 → 5RNO 07-28 19:23 → 5RSO 07-29 16:26
PROVIDERS: ADMIT Internal Medicine; ATTEND Internal Medicine
PROC: BT1F1ZZ Fluoroscopy of Left Kidney, Ureter and Bladder using Low Osmolar Contrast (ICD-10-PCS; 2017-07-29)
PROC: 0T778DZ Dilation of Left Ureter with Intraluminal Device, Via Natural or Artificial Opening Endoscopic (ICD-10-PCS; principal; 2017-07-29 11:45)
DX: N13.2 Hydronephrosis with renal and ureteral calculous obstruction (principal); R31.9 Hematuria, unspecified; Z88.0 Allergy status to penicillin

== ENCOUNTER 2017-08-08 09:34 | Observation (INO) | payer OTHER ==
[2017-08-08 09:34] VITALS: BMI 25.7
--- NOTE | 2017-08-08 11:30 | ED PDOC ---
Arrival/HPI - General Chief Complaint: Abdominal Pain Time Seen by Provider: 08/08/17 11:07 Historian: Patient - History of Present Illness Narrative History of Present Illness (Text): 08/08/17 11:30 A 36 year old male, whose past medical history includes kidney stones, presents to the emergency department complaining of left sided back pain since yesterday afternoon. Patient notes associated urinary urgency and frequency. Patient denies any fever, chills, nausea, vomiting, abdominal pain, chest pain, shortness of breath or any other complaints. PMD: Dr. Hernandez Urologist: Dr. Barboza Time/Duration: 24 hours Symptom Course: Unchanged Context: Home Past Medical History - Provider Review Nursing Documentation Reviewed: Yes - Infectious Disease Hx of Infectious Diseases: None - Cardiac Hx Cardiac Disorders: Yes Hx Heart Murmur: Yes Other/Comment: ABNORMAL EKG - Pulmonary Hx Respiratory Disorders: No - Neurological Hx Neurological Disorder: No - HEENT Hx HEENT Disorder: No - Renal Hx Renal Disorder: No - Endocrine/Metabolic Hx Endocrine Disorders: No - Hematological/Oncological Hx Blood Disorders: No - Integumentary Hx Dermatological Disorder: No Hx Basal Cell Carcinoma: No - Musculoskeletal/Rheumatological Hx Musculoskeletal Disorders: No - Gastrointestinal Hx Gastrointestinal Disorders: Yes Other/Comment: appendectomy - Genitourinary/Gynecological Hx Genitourinary Disorders: No - Psychiatric Hx Psychophysiologic Disorder: No Hx Substance Use: No - Surgical History Hx Appendectomy: Yes Other/Comment: vasectomy 2009, nose sx - Anesthesia Hx Anesthesia: Yes Hx Anesthesia Reactions: No Hx Malignant Hyperthermia: No Family/Social History - Physician Review Nursing Documentation Reviewed: Yes Family/Social History: No Known Family HX Smoking Status: Never Smoked Hx Alcohol Use: Yes Hx Substance Use: No Allergies/Home Meds Allergies/Adverse Reactions: Allergies mushroom Allergy (Verified 08/08/17 14:25) SWELLING Penicillins Adverse Reaction (Verified 08/08/17 14:25) NAUSEA Review of Systems - Physician Review All systems were reviewed & negative as marked: Yes - Review of Systems Constitutional: absent: Fevers, Night Sweats Respiratory: absent: SOB Cardiovascular: absent: Chest Pain Gastrointestinal: absent: Abdominal Pain, Nausea, Vomiting Genitourinary Male: Frequency, Other (Urgency) Musculoskeletal: Back Pain (left back) Physical Exam Vital Signs Reviewed: Yes Vital Signs Temp Pulse Resp BP Pulse Ox 08/08/17 12:59 66 18 130/68 98 08/08/17 11:05 98.5 F 63 16 132/70 98 08/08/17 10:08 98.4 F 69 16 121/70 97 Temperature: Afebrile Blood Pressure: Normal Pulse: Regular Respiratory Rate: Normal Appearance: Positive for: Well-Appearing, Non-Toxic, Comfortable Pain Distress: None Mental Status: Positive for: Alert and Oriented X 3 - Systems Exam Head: Present: Atraumatic, Normocephalic Pupils: Present: PERRL Extroacular Muscles: Present: EOMI Conjunctiva: Present: Normal Mouth: Present: Moist Mucous Membranes Neck: Present: Normal Range of Motion Respiratory/Chest: Present: Clear to Auscultation, Good Air Exchange. No: Respiratory Distress, Accessory Muscle Use Cardiovascular: Present: Regular Rate and Rhythm, Normal S1, S2. No: Murmurs Abdomen: Present: Tenderness (Left abdominal tenderness to palpation), Normal Bowel Sounds. No: Distention, Peritoneal Signs, Rebound, Guarding Back: Present: CVA Tenderness (Left flank tenderness to palpation) Upper Extremity: Present: Normal Inspection. No: Cyanosis, Edema Lower Extremity: Present: Normal Inspection. No: Edema Neurological: Present: GCS=15, CN II-XII Intact, Speech Normal Skin: Present: Warm, Dry, Normal Color. No: Rashes Psychiatric: Present: Alert, Oriented x 3, Normal Insight, Normal Concentration Medical Decision Making ED Course and Treatment: 08/08/17 11:30 Impression: A 36 year old male with left sided back pain Differential Diagnosis included but are not limited to: Kidney stones Plan: -- Abdomen CT -- Labs -- Urinalysis -- Tylenol, Toradol and IV fluids -- Reassess and disposition Progress Notes: Report Date : 08/08/2017 12:30:05 PROCEDURE: CT Abdomen and Pelvis without Oral or IV contrast. Dictator : Ingrid Dasilva MD IMPRESSION: 5 x 4 mm distal left ureteral calculus with proximal hydroureteronephrosis. Additional punctate non obstructing bilateral renal calculi measuring up to 3 mm. Enlarged prostate gland. Recommend correlation with PSA. 08/08/17 13:38 Patient continues to have pain. Lidocaine drip started for further pain management. Case discussed with Urologist Dr. Barboza who states to keep patient NPO and give antibiotics. He will place a stent in the morning if patient continues to have pain. Case discussed with Dr. Salvador, who accepts admission to [facility]. Patient aware of and in agreement with plan. - Lab Interpretations Lab Results: 08/08/17 10:55 08/08/17 10:55 Lab Results 08/08/17 10:55: PT 13.2 H, INR 1.14 H, APTT 30.9 08/08/17 10:55: Sodium 140, Potassium 4.2, Chloride 103, Carbon Dioxide 25, Anion Gap 16, BUN 14, Creatinine 1.0, Est GFR ( Amer) > 60, Est GFR (Non- Af Amer) > 60, Random Glucose 93, Calcium 9.9, Total Bilirubin 1.0, AST 23, ALT 50, Alkaline Phosphatase 86, Total Protein 7.5, Albumin 4.4, Globulin 3.2, Albumin/Globulin Ratio 1.4 08/08/17 10:55: Urine Color Yellow, Urine Appearance Clear, Urine pH 6.0, Ur Specific [place] 1.015, Urine Protein Negative, Urine Glucose (UA) Negative, Urine Ketones Negative, Urine Blood Trace-intact H, Urine Nitrate Negative, Urine Bilirubin Negative, Urine Urobilinogen 0.2, Ur Leukocyte Esterase Negative , Urine RBC 2 - 5, Urine WBC 0 - 2, Ur Epithelial Cells 0 - 2, Amorphous Sediment Few, Urine Bacteria Mod, Hyaline Casts 0 - 2, Urine Other Uyeast 08/08/17 10:55: WBC 6.1, RBC 4.99, Hgb 15.0, Hct 44.1, MCV 88.4, MCH 30.1, MCHC 34.0, RDW 12.9, Plt Count 275, MPV 9.2, Gran % 65.9, Lymph % (Auto) 25.2, [place] % (Auto) 7.4 H, Eos % (Auto) 1.3 L, Baso % (Auto) 0.2, Gran # 4.04, Lymph # 1.5 , [place] # 0.5, Eos # 0.1, Baso # 0.01 I have reviewed the lab results: Yes - RAD Interpretation Radiology Orders: 08/08/17 11:32 ABD & PELVIS W/O PO OR IV CONT [CT] Stat - Medication Orders Current Medication Orders: Discontinued Medications Acetaminophen (Tylenol 325mg Tab) 975 mg PO STAT STA Stop: 08/08/17 11:34 Last Admin: 08/08/17 13:27 Dose: 975 mg MAR Pain/Vitals Document 08/08/17 13:27 OCS (Rec: 08/08/17 13:27 OCS [facility] [id number][place] Pain Reassessment Is This A Pain ReAssessment? Yes Sleep Is patient sleeping during reassessment? No Presence of Pain Presence of Pain Yes Acetaminophen (Tylenol 325mg Tab) 650 mg PO Q4 PRN PRN Reason: Fever >100.4 F Docusate Sodium (Colace) 100 mg PO BID [facility] Last Admin: 08/10/17 09:20 Dose: 100 mg Last Bowel Movement Document 08/10/17 09:20 DSZ (Rec: 08/10/17 09:20 DSZ [facility] [id number]) Last Bowel Movement Last Bowel Movement 08/08/17 Heparin Sodium (Porcine) (Heparin) 5,000 units SC Q12 ELAINA PRN Reason: Protocol Last Admin: 08/08/17 22:39 Dose: 5,000 units Subcutaneous Administrations Document 08/08/17 22:39 MJ (Rec: 08/08/17 22:39 MJ [facility] [id number]) Injection Site MAR Injection Site Right Abdomen Charges for Administration # of Subcutaneous Administrations 1 Hydromorphone HCl (Dilaudid) 0.5 mg IVP Q15M PRN PRN Reason: Pain, moderate (4-7) Stop: 08/09/17 18:51 Sodium Chloride (Sodium Chloride 0.9%) 1,000 mls @ 999 mls/hr IV .Q1H1M STA Stop: 08/08/17 12:33 Last Admin: 08/08/17 13:36 Dose: 999 mls/hr eMAR Start Stop Document 08/08/17 13:36 OCS (Rec: 08/08/17 13:36 OCS [facility] [id number]) Intravenous Solution Start Date 08/08/17 Start Time 13:36 End Date 08/08/17 End time 14:37 Total Infusion Time 61 Lidocaine 126 mg/ Sodium (Chloride) 106.3 mls @ 637.8 mls/hr IV STAT STA Stop: 08/08/17 12:51 Last Admin: 08/08/17 13:28 Dose: 637.8 mls/hr eMAR Start Stop Document 08/08/17 13:28 OCS (Rec: 08/08/17 13:28 OCS [facility] [id number]) Intravenous Solution Start Date 08/08/17 Start Time 13:28 End Date 08/08/17 End time 13:38 Total Infusion Time 10 Lactated Ringer's (Lactated Ringer's) 1,000 mls @ 150 mls/hr IV .Q6H40M [facility] Last Admin: 08/08/17 15:58 Dose: 150 mls/hr eMAR Start Stop Document 08/08/17 15:58 TAV (Rec: 08/08/17 15:58 TAV [facility] [id number] Intravenous Solution Start Date 08/08/17 Start Time 15:58 Lactated Ringer's (Lactated Ringer's) 1,000 mls @ 100 mls/hr IV .Q10H [facility] Last Admin: 08/09/17 10:34 Dose: 100 mls/hr eMAR Start Stop Document 08/09/17 10:34 TAV (Rec: 08/09/17 10:34 TAV [facility] [id number] Intravenous Solution Start Date 08/09/17 Start Time 10:34 Ketorolac Tromethamine (Toradol) 30 mg IVP STAT STA Stop: 08/08/17 11:34 Last Admin: 08/08/17 13:28 Dose: 30 mg MAR Pain Assessment Document 08/08/17 13:28 OCS (Rec: 08/08/17 13:28 OCS [facility] [id number]) Pain Reassessment Is this a pain reassessment? Yes Sleep Is patient sleeping during reassessment? No Presence of Pain Presence of Pain Yes Pain Scale Used Pain Scale Used Numeric IVP Administration Document 08/08/17 13:28 OCS (Rec: 08/08/17 13:28 OCS [facility] [id number]) Charges for Administration # of IVP Administrations 1 Ketorolac Tromethamine (Toradol) 30 mg IVP Q4 PRN PRN Reason: Pain, moderate (4-7) Last Admin: 08/10/17 09:20 Dose: 30 mg MAR Pain Assessment Document 08/10/17 09:20 DSZ (Rec: 08/10/17 09:21 DSZ [facility] [id number] Pain Reassessment Is this a pain reassessment? No Sleep Is patient sleeping during reassessment? No Presence of Pain Presence of Pain Yes Pain Scale Used Pain Scale Used Numeric Location Left, Right or Bilateral Right Pain Location Body Site Back Description Description Intermittent Intensity of Pain at present 9 Acceptable Level of Pain 2 Pain Behavior Withdrawal from Touch Alleviating Factors/Management Medication Techniques Alleviating Factors Medication IVP Administration Document 08/10/17 09:20 DSZ (Rec: 08/10/17 09:21 DSZ [facility] [id number] Charges for Administration # of IVP Administrations 1 Morphine Sulfate (Morphine) 1 mg IVP Q6H PRN PRN Reason: Pain, severe (8-10) Ondansetron HCl (Zofran Inj) 4 mg IVP Q4H PRN PRN Reason: Nausea/Vomiting Pantoprazole Sodium (Protonix Inj) 40 mg IVP DAILY [facility] Last Admin: 08/09/17 10:33 Dose: 40 mg IVP Administration Document 08/09/17 10:33 TAV (Rec: 08/09/17 10:34 TAV [facility] [id number] Charges for Administration # of IVP Administrations 1 Pantoprazole Sodium (Protonix Ec Tab) 40 mg PO 0600 [facility] Last Admin: 08/10/17 06:16 Dose: 40 mg Pneumococcal Polyvalent Vaccine (Pneumovax 23 Vaccine) 0.5 ml IM .ONCE ONE Stop: 08/08/17 15:42 Tamsulosin HCl (Flomax) 0.4 mg PO DAILY [facility] Last Admin: 08/10/17 09:20 Dose: 0.4 mg - Scribe Statement The provider has reviewed the documentation as recorded by the Arabella Moyer Provider Scribe Attestation: All medical record entries made by the [place]án were at my direction and personally dictated by me. I have reviewed the chart and agree that the record accurately reflects my personal performance of the history, physical exam, medical decision making, and the department course for this patient. I have also personally directed, reviewed, and agree with the discharge instructions and disposition. Disposition/Present on Arrival - Present on Arrival Any Indicators Present on Arrival: No History of DVT/PE: No History of Uncontrolled Diabetes: No Urinary Catheter: No History of Decub. Ulcer: No History Surgical Site Infection Following: None - Disposition Have Diagnosis and Disposition been Completed?: Yes Diagnosis: Renal colic Disposition: HOSPITALIZED Disposition Time: 13:38 Patient Plan: Admission, Observation Condition: GOOD
[2017-08-08] MEDS ORDERED: Sodium Chloride 0.9% 1,000 ML IV STA (11:33)
[2017-08-08 11:54] LABS: BASO # 0.01 K/mm3 (0.0-2.0); BASO % 0.2 % (0.0-3.0); EOS # 0.1 (0.0-0.7); EOS % 1.3 % (1.5-5.0); GRAN # 4.04 (1.4-6.5); GRAN % 65.9 % (50.0-68.0); LYMPH # 1.5 (1.2-3.4); LYMPH % 25.2 % (22.0-35.0); MEAN CELL VOLUME 88.4 fl (80.0-105.0); MEAN CORPUSCULAR HEMOGLOBIN 30.1 pg (25.0-35.0); MEAN PLATELET VOLUME 9.2 fl (7.0-11.0); MONO # 0.5 (0.1-0.6); MONO % 7.4 % (1.0-6.0); RBC 4.99 10^6/uL (3.5-6.1); RED CELL DISTRIBUTION WIDTH 12.9 % (11.5-14.5); WHITE BLOOD COUNT 6.1 10^3/ul (4.5-11.0)
[2017-08-08 11:56] LABS: URINE BILIRUBIN NEGATIVE (NEGATIVE); URINE BLOOD TRACE-INTACT (NEGATIVE); URINE GLUCOSE (UA) NEGATIVE (NEGATIVE); URINE LEUKOCYTE ESTERASE NEGATIVE Leu/uL (NEGATIVE); URINE NITRATE NEGATIVE (NEGATIVE); URINE PROTEIN NEGATIVE mg/dL (<30 mg/dL); URINE UROBILINOGEN 0.2 E.U./dL (<1 E.U./dL)
[2017-08-08 11:57] LABS: URINE APPEARANCE CLEAR (CLEAR); URINE COLOR YELLOW (YELLOW)
[2017-08-08 12:06] LABS: ALB/GLOB RATIO 1.4 (1.1-1.8); ALBUMIN 4.4 g/dL (3.0-4.8); ALT/SGPT 50 U/L (7-56); AST/SGOT 23 U/L (17-59); BLOOD UREA NITROGEN 14 mg/dL (7-21); CALCIUM 9.9 mg/dL (8.4-10.5); GFR AFRICAN-AMERICAN > 60; GFR NON-AFRICAN AMERICAN > 60
[2017-08-08 12:11] LABS: INR 1.14 (0.93-1.08); PARTIAL THROMBOPLASTIN TIME 30.9 Seconds (25.1-36.5); PROTHROMBIN TIME 13.2 SECONDS (9.4-12.5)
[2017-08-08 12:28] LABS: URINE EPITHELIAL CELLS 0 - 2 /hpf (0-5); URINE WBC 0 - 2 /hpf (0-6)
[2017-08-08 12:29] LABS: URINE AMORPHOUS SEDIMENT FEW; URINE BACTERIA MOD (NEG); URINE HYALINE CAST 0 - 2 /hpf
--- NOTE | 2017-08-08 12:31 | CT ---
PROCEDURE: CT Abdomen and Pelvis without Oral or IV contrast. HISTORY: left flank pain r/o kidney stone COMPARISON: CT of the abdomen and pelvis without contrast performed 07/28/17 TECHNIQUE: Contiguous axial images of the abdomen and pelvis. No oral or IV contrast administered. Coronal and Sagittal reformats generated and reviewed. Radiation dose: Total exam DLP = 455.65 mGy-cm. This CT exam was performed using one or more of the following dose reduction techniques: Automated exposure control, adjustment of the mA and/or kV according to patient size, and/or use of iterative reconstruction technique. FINDINGS: There is limited evaluation of the solid organs without the administration of IV contrast. LOWER THORAX: No visible consolidation, pleural effusion, or pneumothorax. Small hiatal hernia/distal esophageal wall thickening. LIVER: Unremarkable. GALLBLADDER AND BILE DUCTS: Unremarkable. PANCREAS: Unremarkable. SPLEEN: Unremarkable. ADRENALS: Unremarkable. KIDNEYS AND URETERS: 5 x 4 mm distal left ureteral calculus (series 3, image 139) with proximal hydroureteronephrosis. Additional punctate non obstructing bilateral renal calculi measuring up to 3 mm. BLADDER: The urinary bladder appears unremarkable. REPRODUCTIVE: Prostate gland measures approximately 3.7 x 4.1 cm. APPENDIX: The appendix is not identified. No secondary signs of acute appendicitis. BOWEL: The stomach is nondistended. Lack of oral contrast limits evaluation for bowel pathology. The bowel loops appear within normal limits of caliber without evidence of intestinal obstruction. PERITONEUM: No significant free fluid. No definite free air. LYMPH NODES: No bulky lymphadenopathy identified. VASCULATURE: No aortic aneurysm. BONES: No acute osseous abnormality is detected. OTHER FINDINGS: None. IMPRESSION: 5 x 4 mm distal left ureteral calculus with proximal hydroureteronephrosis. Additional punctate non obstructing bilateral renal calculi measuring up to 3 mm. Enlarged prostate gland. Recommend correlation with PSA.
[2017-08-08] MEDS ORDERED: Lidocaine 126 MG in Sodium Chloride 0.9% 100 ML IV STA (12:50)
[2017-08-08] MEDS ORDERED: Morphine 2 mg/ml ISec IVP PRN (15:05)
--- NOTE | 2017-08-08 15:09 | CP.PCM.HP ---
<Rivas Ball - Last Filed: 08/08/17 17:11> History of Present Illness - History of Present Illness History of Present Illness: Rivas Ball PGY1 IM H&P Note cc: L flank pain and n/v Mr. Friend is a 36 yo M with a PMH of nephrolithiasis and heart murmur as a child that resolved who presented with L flank pain, NOT associated with n/v, and fevers/chills x1 day. Patient was recently admitted for the same issue and discharged on 07/30 with a pigtail stent placed by Dr. Barboza and instructed to follow up later on in the day at the stone center for additional lithotripsy. Patient states that he was instructed to take the stent out the following day ( 8 days ago) and has been feeling better until yesterday when the pain returned, although not as severe as before. Patient denies any hematuria, but complains of L flank pain radiating into the groin. Patient denies any other chest pain, shortness of breath, fevers/chills, n/v/d, changes in bowel habits, recent sick ontacts. Patient was evaluated for R kidney stones 2 years ago and was told that they were small enough to pass on their own and he never strained the urine and doesn't know if they passed but had no issues since then. 12-pt ROS was reviewed and is otherwise unremarkable. PMD: Dr. Hernandez Uro: Dr. Ashli Barboza PMH: as above PSH: appendectomy, vasectomy, nose repair Meds: none Allergies: PCN SHx: denies tobacco or substance use; drinks beers Present on Admission - Present on Admission Any Indicators Present on Admission: No Review of Systems - Review of Systems All systems: reviewed and no additional remarkable complaints except (as per HPI ) Past Patient History - Infectious Disease Hx of Infectious Diseases: None - Past Social History Smoking Status: Never Smoked Alcohol: Social Drugs: Denies Home Situation {Lives}: With Family - CARDIAC Hx Cardiac Disorders: Yes Hx Heart Murmur: Yes (RBBB) - PULMONARY Hx Respiratory Disorders: No - NEUROLOGICAL Hx Neurological Disorder: No - HEENT Hx HEENT Problems: No - RENAL Hx Chronic Kidney Disease: No - ENDOCRINE/METABOLIC Hx Endocrine Disorders: No - HEMATOLOGICAL/ONCOLOGICAL Hx Blood Disorders: No - INTEGUMENTARY Hx Dermatological Problems: No Hx Basil Cell: No - MUSCULOSKELETAL/RHEUMATOLOGICAL Hx Musculoskeletal Disorders: No - GASTROINTESTINAL Hx Gastrointestinal Disorders: No - GENITOURINARY/GYNECOLOGICAL Hx Genitourinary Disorders: No - PSYCHIATRIC Hx Psychophysiologic Disorder: No Hx Substance Use: No - SURGICAL HISTORY Hx Appendectomy: Yes Other/Comment: vasectomy 2009, nose sx - ANESTHESIA Hx Anesthesia: Yes Hx Anesthesia Reactions: No Hx Malignant Hyperthermia: No Meds Allergies/Adverse Reactions: Allergies Allergy/AdvReac Type Severity Reaction Status Date / Time mushroom Allergy SWELLING Verified 08/08/17 14:25 Penicillins AdvReac NAUSEA Verified 08/08/17 14:25 Physical Exam - Constitutional Appears: Well, Non-toxic, No Acute Distress - Head Exam Head Exam: NORMAL INSPECTION - Eye Exam Eye Exam: EOMI, Normal appearance, PERRL - ENT Exam ENT Exam: Mucous Membranes Moist, Normal Exam - Neck Exam Neck exam: Positive for: Normal Inspection - Respiratory Exam Respiratory Exam: NORMAL BREATHING PATTERN. absent: Rales, Rhonchi, Wheezes - Cardiovascular Exam Cardiovascular Exam: RRR, +S1, +S2 - GI/Abdominal Exam GI & Abdominal Exam: Guarding, Normal Bowel Sounds, Soft, Tenderness (LLQ ). absent: Distended, Rigid - Extremities Exam Extremities exam: Positive for: normal inspection. Negative for: pedal edema - Back Exam Back exam: CVA tenderness (L), NORMAL INSPECTION - Neurological Exam Neurological exam: Alert, Oriented x3 - Psychiatric Exam Psychiatric exam: Normal Affect, Normal Mood - Skin Skin Exam: Normal Color, Warm Results - Vital Signs Recent Vital Signs: Last Vital Signs Temp 98.5 F 08/08/17 11:05 Pulse 66 08/08/17 12:59 Resp 18 08/08/17 12:59 BP 130/68 08/08/17 12:59 Pulse Ox 98 08/08/17 12:59 - Labs Result Diagrams: 08/08/17 10:55 08/08/17 10:55 Assessment & Plan - Assessment and Plan (Free Text) Assessment: 36 yo M with a PMH of nephrolithiasis and heart murmur as a child that resolved , who presented with L flank pain and found to have L hydrouretronephrosis with 5mm L distal uretral calculus. Plan: 1. L hydronephrosis w/ obstructing stone - CT Abdomen/Pelvis showed: 5 x 4 mm distal left ureteral calculus with proximal hydroureteronephrosis. Additional punctate non obstructing bilateral renal calculi measuring up to 3 mm. Enlarged prostate gland - Discussed with Dr. Barboza, who does not have any plans for intervention today , so will start diet and keep patient NPO past midnight in case procedure is planned for tomorrow - LR @ 150 - Flomax - strain urine - pain: toradol and morphine PRN - Zofran PRN n/v - tylenol PRN fevers - colace for stool softening - Urology consulted, recs appreciated 2. PPX - PTX for GI PPX - Heparin for DVT PPX Patient was seen, examined and discussed with attending, Dr. Modesto Ball PGY1 Pager # [phone] <Israel Salvador - Last Filed: 08/08/17 18:59> Results - Vital Signs Recent Vital Signs: Last Vital Signs Temp 98.5 F 08/08/17 15:16 Pulse 66 08/08/17 15:16 Resp 18 08/08/17 15:16 BP 130/68 08/08/17 15:16 Pulse Ox 98 08/08/17 12:59 - Labs Result Diagrams: 08/08/17 10:55 08/08/17 10:55 Attending/Attestation - Attestation I have personally seen and examined this patient.: Yes I have fully participated in the care of the patient.: Yes I have reviewed all pertinent clinical information: Yes Notes (Text): 08/08/17 18:44 attending note; Patient seen and examined with resident in ER. patient is a 36-year-old male admitted with left flank pain radiating to the groin. CT consistent with 5 mm ureteral stone with mild hydronephrosis. Patient had recent left ureteraent placement. Patient had lithotripsy and stent removal 2 weeks ago. Case discussed with Dr. barboza in detail. Continue IVF. Continue Flomax. Will follow up closely. 08/08/17 18:46
[2017-08-08] MEDS ORDERED: Lactated Ringer's 1,000 ML IV SCH ×2 (15:15→17:12)
[2017-08-08] MEDS ORDERED: Pneumococcal 23-Valent Vaccine IM ONE (15:41)
[2017-08-08] MEDS ORDERED: Influenza Vaccine 60 mcg/0.5 mL SYR (4YR UP) IM ONE (15:41)
[2017-08-09 08:05] LABS: BASO # 0.02 K/mm3 (0.0-2.0); BASO % 0.4 % (0.0-3.0); EOS # 0.1 (0.0-0.7); EOS % 1.4 % (1.5-5.0); GRAN # 2.79 (1.4-6.5); GRAN % 56.1 % (50.0-68.0); HEMOGLOBIN 13.8 g/dL (14.0-18.0); LYMPH # 1.6 (1.2-3.4); LYMPH % 32.2 % (22.0-35.0); MEAN CELL VOLUME 88.3 fl (80.0-105.0); MEAN CORPUSCULAR HEMOGLOBIN 29.3 pg (25.0-35.0); MEAN CORPUSCULAR HGB CONC 33.2 g/dl (31.0-37.0); MONO # 0.5 (0.1-0.6); MONO % 9.9 % (1.0-6.0); RBC 4.71 10^6/uL (3.5-6.1); RED CELL DISTRIBUTION WIDTH 12.6 % (11.5-14.5)
[2017-08-09 08:37] LABS: ALB/GLOB RATIO 1.4 (1.1-1.8); ALBUMIN 3.7 g/dL (3.0-4.8); ALT/SGPT 33 U/L (7-56); AST/SGOT 19 U/L (17-59); BLOOD UREA NITROGEN 13 mg/dL (7-21); CALCIUM 9.3 mg/dL (8.4-10.5); GFR AFRICAN-AMERICAN > 60; GFR NON-AFRICAN AMERICAN > 60; MAGNESIUM 1.9 mg/dL (1.7-2.2)
[2017-08-09] MEDS ORDERED: Midazolam 2 MG/2 ML VIAL ONE (15:25)
[2017-08-09] MEDS ORDERED: Propofol 10 mg/ml Inj (20 ML) ONE (15:25)
[2017-08-09] MEDS ORDERED: Gentamicin 80mg/50ml NS 80 MG/50 ML BAG IVPB ONE (16:09)
[2017-08-09] MEDS ORDERED: Iohexol 240 (50 ml) ONE (16:09)
[2017-08-09] MEDS ORDERED: HYDROmorphone 0.5 mg/0.5 ml ISec IVP PRN (16:51)
--- NOTE | 2017-08-09 17:22 | CP.PCM.PN ---
<Rivas Ball - Last Filed: 08/09/17 21:20> Subjective - Date & Time of Evaluation Date of Evaluation: 08/09/17 Time of Evaluation: 11:20 - Subjective Subjective: Rivas Ball PGY1 IM Progress Note Patient was seen and examined at bedside. He is going for cystoscopy and stenting today as per Dr. Barboza and what the patient knows. He states that his abdomen is tender and that he has been urinating plenty but does not think he passed the stone. He denies hematuria and any trouble urinating. He has been giving the urine to the nurse who strains it. Patient denies fevers/chills, n/v/ d over night. Objective - Vital Signs/Intake and Output Vital Signs (last 24 hours): Temp Pulse Resp BP Pulse Ox 97.6 F 63 18 142/84 99 08/09/17 17:15 08/09/17 17:15 08/09/17 17:15 08/09/17 17:15 08/09/17 17:15 Intake and Output: 08/09/17 08/09/17 06:59 18:59 Intake Total 600 50 Output Total 1500 Balance -900 50 - Medications Medications: Current Medications Acetaminophen (Tylenol 325mg Tab) 650 mg PO Q4 PRN PRN Reason: Fever >100.4 F Docusate Sodium (Colace) 100 mg PO BID [facility] Last Admin: 08/09/17 10:32 Dose: 100 mg Heparin Sodium (Porcine) (Heparin) 5,000 units SC Q12 [facility] PRN Reason: Protocol Last Admin: 08/08/17 22:39 Dose: 5,000 units Hydromorphone HCl (Dilaudid) 0.5 mg IVP Q15M PRN PRN Reason: Pain, moderate (4-7) Stop: 08/09/17 18:51 Lactated Ringer's (Lactated Ringer's) 1,000 mls @ 100 mls/hr IV .Q10H [facility] Last Admin: 08/09/17 10:34 Dose: 100 mls/hr Ketorolac Tromethamine (Toradol) 30 mg IVP Q4 PRN PRN Reason: Pain, moderate (4-7) Last Admin: 08/09/17 13:05 Dose: 30 mg Morphine Sulfate (Morphine) 1 mg IVP Q6H PRN PRN Reason: Pain, severe (8-10) Ondansetron HCl (Zofran Inj) 4 mg IVP Q4H PRN PRN Reason: Nausea/Vomiting Pantoprazole Sodium (Protonix Inj) 40 mg IVP DAILY [facility] Last Admin: 08/09/17 10:33 Dose: 40 mg Tamsulosin HCl (Flomax) 0.4 mg PO DAILY [facility] Last Admin: 08/09/17 10:32 Dose: 0.4 mg - Labs Labs: 08/09/17 07:30 08/09/17 07:30 PT 13.2 SECONDS (9.4-12.5) H 08/08/17 10:55 INR 1.14 (0.93-1.08) H 08/08/17 10:55 APTT 30.9 Seconds (25.1-36.5) 08/08/17 10:55 - Additional Findings Additional findings: - Constitutional Appears: Well, Non-toxic, No Acute Distress - Head Exam Head Exam: NORMAL INSPECTION - Eye Exam Eye Exam: EOMI, Normal appearance, PERRL - ENT Exam ENT Exam: Mucous Membranes Moist, Normal Exam - Neck Exam Neck exam: Positive for: Normal Inspection - Respiratory Exam Respiratory Exam: NORMAL BREATHING PATTERN. absent: Rales, Rhonchi, Wheezes - Cardiovascular Exam Cardiovascular Exam: RRR, +S1, +S2 - GI/Abdominal Exam GI & Abdominal Exam: Guarding, Normal Bowel Sounds, Soft, Tenderness (LLQ ). absent: Distended, Rigid - Extremities Exam Extremities exam: Positive for: normal inspection. Negative for: pedal edema - Back Exam Back exam: CVA tenderness (L), NORMAL INSPECTION - Neurological Exam Neurological exam: Alert, Oriented x3 - Psychiatric Exam Psychiatric exam: Normal Affect, Normal Mood - Skin Skin Exam: Normal Color, Warm Assessment & Plan - Assessment and Plan (Free Text) Assessment: 36 yo M with a PMH of nephrolithiasis and heart murmur as a child that resolved , who presented with L flank pain and found to have L hydrouretronephrosis with 5mm L distal uretral calculus. Plan: 1. L hydronephrosis w/ obstructing stone - Pt kept NPO overnight - Per Dr. Barboza will insert uretral stent today - will await Dr. Barboza's input for postop recs - CT Abdomen/Pelvis showed: 5 x 4 mm distal left ureteral calculus with proximal hydroureteronephrosis. Additional punctate non obstructing bilateral renal calculi measuring up to 3 mm. Enlarged prostate gland - LR @ 150 - Flomax - strain urine - pain: toradol and morphine PRN - Zofran PRN n/v - tylenol PRN fevers - colace for stool softening - Urology consulted, recs appreciated 2. PPX - PTX for GI PPX - Heparin for DVT PPX Patient was seen, examined and discussed with attending, Dr. oMdesto Ball PGY1 Pager # [phone] <Israel Salvador - Last Filed: 08/10/17 15:47> Objective - Vital Signs/Intake and Output Vital Signs (last 24 hours): Temp Pulse Resp BP Pulse Ox 97.8 F 64 20 108/71 96 08/10/17 08:24 08/10/17 08:24 08/10/17 08:24 08/10/17 08:24 08/10/17 08:24 Intake and Output: 08/10/17 08/10/17 06:59 18:59 Intake Total 600 Output Total 1400 Balance -800 - Labs Labs: 08/10/17 07:00 08/10/17 07:00 PT 13.2 SECONDS (9.4-12.5) H 08/08/17 10:55 INR 1.14 (0.93-1.08) H 08/08/17 10:55 APTT 30.9 Seconds (25.1-36.5) 08/08/17 10:55 Attending/Attestation - Attestation I have personally seen and examined this patient.: Yes I have fully participated in the care of the patient.: Yes I have reviewed all pertinent clinical information, including history, physical exam and plan: Yes Notes (Text): 08/10/17 15:46 attending note; Patient seen and examined with resident. patient is a 36-year-old male admitted with left flank pain radiating to the groin. CT consistent with 5 mm ureteral stone with mild hydronephrosis. patient denies any hematuria. Still complaining of abdominal discomfort. Did not pass the stone yet. Plan for cystoscopy and stent placement today. Case discussed with Dr. antonino in detail. Continue IVF. Continue Flomax. Will follow up closely.
[2017-08-09 17:31] VITALS: PULSE 64
[2017-08-10] MEDS ORDERED: Pantoprazole 40 mg EC Tab PO SCH (06:00)
[2017-08-10 07:54] LABS: BASO # 0.01 K/mm3 (0.0-2.0); BASO % 0.2 % (0.0-3.0); EOS # 0.1 (0.0-0.7); EOS % 1.8 % (1.5-5.0); GRAN # 3.91 (1.4-6.5); GRAN % 64.5 % (50.0-68.0); HEMOGLOBIN 14.5 g/dL (14.0-18.0); LYMPH # 1.6 (1.2-3.4); LYMPH % 26.1 % (22.0-35.0); MEAN CELL VOLUME 87.6 fl (80.0-105.0); MEAN CORPUSCULAR HEMOGLOBIN 29.5 pg (25.0-35.0); MEAN CORPUSCULAR HGB CONC 33.7 g/dl (31.0-37.0); MEAN PLATELET VOLUME 9.1 fl (7.0-11.0); MONO # 0.5 (0.1-0.6); MONO % 7.4 % (1.0-6.0); RBC 4.91 10^6/uL (3.5-6.1); RED CELL DISTRIBUTION WIDTH 12.7 % (11.5-14.5); WHITE BLOOD COUNT 6.1 10^3/ul (4.5-11.0)
[2017-08-10 08:19] LABS: ALB/GLOB RATIO 1.4 (1.1-1.8); ALBUMIN 3.9 g/dL (3.0-4.8); ALT/SGPT 33 U/L (7-56); AST/SGOT 19 U/L (17-59); BLOOD UREA NITROGEN 14 mg/dL (7-21); CALCIUM 9.6 mg/dL (8.4-10.5); GFR AFRICAN-AMERICAN > 60; GFR NON-AFRICAN AMERICAN > 60; MAGNESIUM 1.8 mg/dL (1.7-2.2)
[2017-08-10 08:25] VITALS: BP 108/71; RESP 20; TEMP 97.8; O2SAT 96
--- NOTE | 2017-08-10 10:03 | CP.PCM.DIS ---
<Rivas Ball - Last Filed: 08/10/17 17:57> Provider - Provider Date of Admission: 08/08/17 13:38 Attending physician: Israel Salvador MD Time Spent in preparation of Discharge (in minutes): 40 Diagnosis - Discharge Diagnosis (1) Nephrolithiasis Status: Acute (2) RBBB Status: Acute Hospital Course - Lab Results Lab Results: Most Recent Lab Values WBC 6.1 10^3/ul (4.5-11.0) D 08/10/17 07:00 RBC 4.91 10^6/uL (3.5-6.1) 08/10/17 07:00 Hgb 14.5 g/dL (14.0-18.0) 08/10/17 07:00 Hct 43.0 % (42.0-52.0) 08/10/17 07:00 MCV 87.6 fl (80.0-105.0) 08/10/17 07:00 MCH 29.5 pg (25.0-35.0) 08/10/17 07:00 MCHC 33.7 g/dl (31.0-37.0) 08/10/17 07:00 RDW 12.7 % (11.5-14.5) 08/10/17 07:00 Plt Count 243 10^3/uL (120.0-450.0) 08/10/17 07:00 MPV 9.1 fl (7.0-11.0) 08/10/17 07:00 Gran % 64.5 % (50.0-68.0) 08/10/17 07:00 Lymph % (Auto) 26.1 % (22.0-35.0) 08/10/17 07:00 Nolan % (Auto) 7.4 % (1.0-6.0) H 08/10/17 07:00 Eos % (Auto) 1.8 % (1.5-5.0) 08/10/17 07:00 Baso % (Auto) 0.2 % (0.0-3.0) 08/10/17 07:00 Gran # 3.91 (1.4-6.5) 08/10/17 07:00 Lymph # 1.6 (1.2-3.4) 08/10/17 07:00 Nolan # 0.5 (0.1-0.6) 08/10/17 07:00 Eos # 0.1 (0.0-0.7) 08/10/17 07:00 Baso # 0.01 K/mm3 (0.0-2.0) 08/10/17 07:00 PT 13.2 SECONDS (9.4-12.5) H 08/08/17 10:55 INR 1.14 (0.93-1.08) H 08/08/17 10:55 APTT 30.9 Seconds (25.1-36.5) 08/08/17 10:55 Sodium 140 mmol/L (132-148) 08/10/17 07:00 Potassium 3.9 mmol/L (3.6-5.0) 08/10/17 07:00 Chloride 103 mmol/L (98-107) 08/10/17 07:00 Carbon Dioxide 27 mmol/L (21-33) 08/10/17 07:00 Anion Gap 14 (10-20) 08/10/17 07:00 BUN 14 mg/dL (7-21) 08/10/17 07:00 Creatinine 1.0 mg/dl (0.8-1.5) 08/10/17 07:00 Est GFR ( Amer) > 60 08/10/17 07:00 Est GFR (Non-Af Amer) > 60 08/10/17 07:00 Random Glucose 89 mg/dL (70-110) 08/10/17 07:00 Calcium 9.6 mg/dL (8.4-10.5) 08/10/17 07:00 Phosphorus 3.2 mg/dL (2.5-4.5) 08/10/17 07:00 Magnesium 1.8 mg/dL (1.7-2.2) 08/10/17 07:00 Total Bilirubin 0.6 mg/dL (0.2-1.3) 08/10/17 07:00 AST 19 U/L (17-59) 08/10/17 07:00 ALT 33 U/L (7-56) 08/10/17 07:00 Alkaline Phosphatase 70 U/L (38-126) 08/10/17 07:00 Total Protein 6.6 g/dL (5.8-8.3) 08/10/17 07:00 Albumin 3.9 g/dL (3.0-4.8) 08/10/17 07:00 Globulin 2.7 gm/dL 08/10/17 07:00 Albumin/Globulin Ratio 1.4 (1.1-1.8) 08/10/17 07:00 Urine Color Yellow (YELLOW) 08/08/17 10:55 Urine Appearance Clear (CLEAR) 08/08/17 10:55 Urine pH 6.0 (4.7-8.0) 08/08/17 10:55 Ur Specific [place] 1.015 (1.005-1.035) 08/08/17 10:55 Urine Protein Negative mg/dL (<30 mg/dL) 08/08/17 10:55 Urine Glucose (UA) Negative mg/dL (NEGATIVE) 08/08/17 10:55 Urine Ketones Negative mg/dL (NEGATIVE) 08/08/17 10:55 Urine Blood Trace-intact (NEGATIVE) H 08/08/17 10:55 Urine Nitrate Negative (NEGATIVE) 08/08/17 10:55 Urine Bilirubin Negative (NEGATIVE) 08/08/17 10:55 Urine Urobilinogen 0.2 E.U./dL (<1 E.U./dL) 08/08/17 10:55 Ur Leukocyte Esterase Negative Cale/uL (NEGATIVE) 08/08/17 10:55 Urine RBC 2 - 5 /hpf (0-2) 08/08/17 10:55 Urine WBC 0 - 2 /hpf (0-6) 08/08/17 10:55 Ur Epithelial Cells 0 - 2 /hpf (0-5) 08/08/17 10:55 Amorphous Sediment Few 08/08/17 10:55 Urine Bacteria Mod (NEG) 08/08/17 10:55 Hyaline Casts 0 - 2 /hpf 08/08/17 10:55 Urine Other Uyeast 08/08/17 10:55 - Hospital Course Hospital Course: Mr. Friend is a 36 yo M with a PMH of nephrolithiasis and heart murmur as a child that resolved who presented with L flank pain, NOT associated with n/v, and fevers/chills x1 day. Patient was recently admitted for the same issue and discharged on 07/30 with a pigtail stent placed by Dr. Barboza and instructed to follow up later on in the day at the [facility] for additional lithotripsy. Patient states that he was instructed to take the stent out the following day ( 8 days ago) and has been feeling better until yesterday when the pain returned, although not as severe as before. CT Abdomen/Pelvis showed: 5 x 4 mm distal left ureteral calculus with proximal hydroureteronephrosis. Additional punctate non obstructing bilateral renal calculi measuring up to 3 mm. Enlarged prostate gland. Patient was started on fluids and pain management and Dr. Barboza was consulted. Dr. Barboza performed cystoscopy and R urethroscopy w/ lase lithotripsy and insertion of pigtail stent. Patient is tolerating his diet and urinating with no issues or blood the day after the procedure. He was instructed by dr. Barboza to follow up either tomorrow (Saturday) or Saturday in clinic for removal of stent. Patient is prescribed colace, flomax and percocet PRN. Patient is educated on his condition and is medically cleared for discharge home with no complaints. Discharge Exam - Head Exam Head Exam: NORMAL INSPECTION - Eye Exam Eye Exam: EOMI, Normal appearance - ENT Exam ENT Exam: Normal Exam - Neck Exam Neck exam: Normal Inspection - Respiratory Exam Respiratory Exam: NORMAL BREATHING PATTERN. absent: Rales, Rhonchi, Wheezes - Cardiovascular Exam Cardiovascular Exam: RRR, +S1, +S2 - GI/Abdominal Exam GI & Abdominal Exam: Normal Bowel Sounds, Soft. absent: Distended, Tenderness - Extremities Exam Extremities exam: full ROM, normal inspection - Back Exam Back exam: NORMAL INSPECTION. absent: CVA tenderness (L), CVA tenderness (R) - Neurological Exam Neurological exam: Alert, CN II-XII Intact, Normal Gait, Oriented x3 - Psychiatric Exam Psychiatric exam: Normal Affect, Normal Mood - Skin Skin Exam: Normal Color, Warm Discharge Plan - Discharge Medications Prescriptions: Docusate [Colace] 100 mg PO BID #20 cap oxyCODONE/Acetaminophen [Percocet 5/325 mg Tab] 1 ea PO Q4 PRN #10 tab PRN Reason: Pain, Severe (8-10) Tamsulosin [Flomax] 0.4 mg PO DAILY #10 cap - Follow Up Plan Condition: GOOD Disposition: HOME/ ROUTINE Instructions: Kidney Stones (DC), Influenza Vaccine (GEN), Narcotic Pain Management (DC), Regular Diet (DC), Ureteral Stent Placement (DC) Additional Instructions: - please take flomax daily - please take colace twice daily - please take percocet for pain as needed, otherwise, please take motrin as needed as prescribed on label - please follow up with Dr. Barboza for stent removal, as instructed by him - please follow up with your PMD within 2 weeks of discharge - please stay hydrated - continue to strain your urine - if you continue to experience pain, decreased urine flow or fevers/chills, please return to ER for eval Referrals: Daniel Barboza MD [Staff Provider] - <Israel Salvador - Last Filed: 08/11/17 16:38> Provider - Provider Date of Admission: 08/08/17 13:38 Attending physician: Israel Salvador MD Hospital Course - Lab Results Lab Results: Most Recent Lab Values WBC 6.1 10^3/ul (4.5-11.0) D 08/10/17 07:00 RBC 4.91 10^6/uL (3.5-6.1) 08/10/17 07:00 Hgb 14.5 g/dL (14.0-18.0) 08/10/17 07:00 Hct 43.0 % (42.0-52.0) 08/10/17 07:00 MCV 87.6 fl (80.0-105.0) 08/10/17 07:00 MCH 29.5 pg (25.0-35.0) 08/10/17 07:00 MCHC 33.7 g/dl (31.0-37.0) 08/10/17 07:00 RDW 12.7 % (11.5-14.5) 08/10/17 07:00 Plt Count 243 10^3/uL (120.0-450.0) 08/10/17 07:00 MPV 9.1 fl (7.0-11.0) 08/10/17 07:00 Gran % 64.5 % (50.0-68.0) 08/10/17 07:00 Lymph % (Auto) 26.1 % (22.0-35.0) 08/10/17 07:00 Nolan % (Auto) 7.4 % (1.0-6.0) H 08/10/17 07:00 Eos % (Auto) 1.8 % (1.5-5.0) 08/10/17 07:00 Baso % (Auto) 0.2 % (0.0-3.0) 08/10/17 07:00 Gran # 3.91 (1.4-6.5) 08/10/17 07:00 Lymph # 1.6 (1.2-3.4) 08/10/17 07:00 Nolan # 0.5 (0.1-0.6) 08/10/17 07:00 Eos # 0.1 (0.0-0.7) 08/10/17 07:00 Baso # 0.01 K/mm3 (0.0-2.0) 08/10/17 07:00 PT 13.2 SECONDS (9.4-12.5) H 08/08/17 10:55 INR 1.14 (0.93-1.08) H 08/08/17 10:55 APTT 30.9 Seconds (25.1-36.5) 08/08/17 10:55 Sodium 140 mmol/L (132-148) 08/10/17 07:00 Potassium 3.9 mmol/L (3.6-5.0) 08/10/17 07:00 Chloride 103 mmol/L (98-107) 08/10/17 07:00 Carbon Dioxide 27 mmol/L (21-33) 08/10/17 07:00 Anion Gap 14 (10-20) 08/10/17 07:00 BUN 14 mg/dL (7-21) 08/10/17 07:00 Creatinine 1.0 mg/dl (0.8-1.5) 08/10/17 07:00 Est GFR ( Amer) > 60 08/10/17 07:00 Est GFR (Non-Af Amer) > 60 08/10/17 07:00 Random Glucose 89 mg/dL (70-110) 08/10/17 07:00 Calcium 9.6 mg/dL (8.4-10.5) 08/10/17 07:00 Phosphorus 3.2 mg/dL (2.5-4.5) 08/10/17 07:00 Magnesium 1.8 mg/dL (1.7-2.2) 08/10/17 07:00 Total Bilirubin 0.6 mg/dL (0.2-1.3) 08/10/17 07:00 AST 19 U/L (17-59) 08/10/17 07:00 ALT 33 U/L (7-56) 08/10/17 07:00 Alkaline Phosphatase 70 U/L (38-126) 08/10/17 07:00 Total Protein 6.6 g/dL (5.8-8.3) 08/10/17 07:00 Albumin 3.9 g/dL (3.0-4.8) 08/10/17 07:00 Globulin 2.7 gm/dL 08/10/17 07:00 Albumin/Globulin Ratio 1.4 (1.1-1.8) 08/10/17 07:00 Urine Color Yellow (YELLOW) 08/08/17 10:55 Urine Appearance Clear (CLEAR) 08/08/17 10:55 Urine pH 6.0 (4.7-8.0) 08/08/17 10:55 Ur Specific [place] 1.015 (1.005-1.035) 08/08/17 10:55 Urine Protein Negative mg/dL (<30 mg/dL) 08/08/17 10:55 Urine Glucose (UA) Negative mg/dL (NEGATIVE) 08/08/17 10:55 Urine Ketones Negative mg/dL (NEGATIVE) 08/08/17 10:55 Urine Blood Trace-intact (NEGATIVE) H 08/08/17 10:55 Urine Nitrate Negative (NEGATIVE) 08/08/17 10:55 Urine Bilirubin Negative (NEGATIVE) 08/08/17 10:55 Urine Urobilinogen 0.2 E.U./dL (<1 E.U./dL) 08/08/17 10:55 Ur Leukocyte Esterase Negative Cale/uL (NEGATIVE) 08/08/17 10:55 Urine RBC 2 - 5 /hpf (0-2) 08/08/17 10:55 Urine WBC 0 - 2 /hpf (0-6) 08/08/17 10:55 Ur Epithelial Cells 0 - 2 /hpf (0-5) 08/08/17 10:55 Amorphous Sediment Few 08/08/17 10:55 Urine Bacteria Mod (NEG) 08/08/17 10:55 Hyaline Casts 0 - 2 /hpf 08/08/17 10:55 Urine Other Uyeast 08/08/17 10:55 Attending/Attestation - Attestation I have personally seen and examined this patient.: Yes I have fully participated in the care of the patient.: Yes I have reviewed all pertinent clinical information, including history, physical exam and plan: Yes Notes (Text): 08/11/17 16:28 attending note; Patient seen and examined with resident. patient is a 36-year-old male admitted with left flank pain radiating to the groin. CT consistent with 5 mm ureteral stone with mild hydronephrosis. s/p cystoscopy and stent placement. Case discussed with Dr. barboza in detail. Continue Flomax. Patient was given prescription for Percocet and Flomax. Patient will follow-up with Dr. Barboza on Saturday for possible stent removal. Patient is clinically stable. Discharge home today.
--- NOTE | 2017-08-12 14:33 | RAD ---
PROCEDURE: Fluoroscopy up to 1 hour HISTORY: LASER LITHOTRIPSY / STENT INSERTION (LEFT) COMPARISON: TECHNIQUE: Fluoroscopy was provided in the operating room. 26.1 seconds of fluoro time. Fourteen images were submitted FINDINGS: The study shows a wire and instrument in the left ureter. There is placement of a left ureteral stent. The study was performed by Dr. Ashli Barboza. IMPRESSION: As above
--- NOTE | 2017-08-15 15:55 | OP ---
PROCEDURE DATE: 08/09/2017 UROLOGY OPERATIVE REPORT PREOPERATIVE DIAGNOSES: Urolithiasis, hematuria, severe left renal colic, severe hydronephrosis, and distal ureteral stone. POSTOPERATIVE DIAGNOSES: Urolithiasis, hematuria, severe left renal colic, severe hydronephrosis, and distal ureteral stone. PROCEDURES: Cystoscopy, retrograde pyelogram, ureteral dilation, ureteroscopy, laser lithotripsy of stone, and insertion of double J-stent with dangles. COMPLICATIONS: None. ESTIMATED BLOOD LOSS: Less than 20 mL. OPERATIVE FINDINGS: Normal anterior urethra. No strictures. Verumontanum is minimally visually occlusive. There is a distal ureteral stone that is too large to be basketed, and the stone is completely fragmented with laser lithotripsy. At the termination, the patient has no visible stones by x-ray criteria and also by visual criteria. At the termination of the procedure, the patient has a double J-stent in good location. INDICATIONS: See history and physical for further details and consultation. A very pleasant gentleman, we previously treated him with a stone. This is now actually a new stone that has fallen. See the previously dictated note. We treated him and previous stone, now a new stone is formed, fallen down. He is now here for the above procedure. We discussed the options. DESCRIPTION OF PROCEDURE: After obtaining informed consent, the patient was placed on the table. Routine monitors were placed. Time-out was called to confirm the patient, positioning. Antibiotic prophylaxis had been used. The patient's application architect manager film performed, showed a distal ureteral stone. Consistent with CAT scan. We introduced cystoscope via urethra. The ureter orifice identified. A wire was passed up to the kidney. Just at the point of the stone, actually difficulty negotiating that wire, but we are able to get it passed. We now introduced the ureteroscope. We used a second wire to dilate the distal ureter because he was not previously stented at this point. Once we did this, we engaged the ureteroscope, we attempted to see if we can get a basket, but really much too large. At this point, we introduced the laser wire bring a second nurse into the room. The laser nurse would bring her into the room, she is available. As it had been expected, we then engaged the laser. We performed Holmium laser lithotripsy. At this point, we worked diligently and carefully. We are able to visualize the stone. The entire procedure was done with the camera. Once we broke the pieces into stephanie pieces, multiple pictures were taken and saved. We introduced the stent with the dangles. We confirmed our positioning. The bladder was emptied, the cystoscope was removed. The patient tolerated the procedure without complications. Denver Barboza MD
--- NOTE | 2017-08-15 17:24 | CON ---
DATE: 08/08/2017 UROLOGY CONSULTATION REASON FOR CONSULTATION: Urolithiasis and hydronephrosis. HISTORY OF PRESENT ILLNESS: Mr. Friend is a very pleasant gentleman, who I have been following with urolithiasis. We had previously treated his stone. Once we treated that stone, the patient was doing well actually and then this week, he called me that he is having repeat difficulty. So, we then asked the patient to get a KUB and also found the KUB did not show anything significant (see below), but the ultrasound showed hydronephrosis. I then observed the patient the possibility of the stone still or a new stone has formed. We kept in touch and the patient then reported that he was still having ongoing pain. I asked him to come to the hospital. I spoke to the ER. We did an emergency CAT scan and it showed a distant ureteral stone with hydronephrosis, it is about 4 to 5 mm stone. See the plans listed below and he is now admitted as an emergency with severe renal colic. We plan for observation and if no improvement, we are going to get that stone out before the weekend. PAST MEDICAL AND SURGICAL HISTORY: No other changes. REVIEW OF SYSTEMS: No other changes. SOCIAL HISTORY: , works. PHYSICAL EXAMINATION: GENERAL: A well-nourished male, in no apparent distress. VITAL SIGNS: Within normal limits, included in the chart. ABDOMEN: Relatively soft. There is no real CVA tenderness. The remaining physical exam is otherwise unremarkable. LABORATORY DATA: See chart. The CT scan shows a distal ureteral stone with hydronephrosis. DIAGNOSES: Severe urolithiasis, severe renal colic, hydronephrosis, and distal ureteral stone. PLAN: I discussed the options with the patient. It is a small stone. I believe this is a different stone than previously. After the last treatment, the patient was doing much better, feeling better, back to regular activities. In fact, he is wondering if this happened because he overdid it if one stone falls, another stone will come. I discussed all this with the patient. I explained also that this size stone may pass, but we will observe the patient, but he would like it to be treated as quickly as possible. So, we are going to observe him for a day and if there is no improvement, then on 08/09/2017, which is before the weekend, ureteroscopy with laser lithotripsy here in this hospital, we will make arrangements. So, in the meantime, the plan is as follows: 1. IV fluid. 2. Analgesics. 3. Screening the urine. 4. Flomax. We will see how the patient does clinically and then further plans will follow. patient needed surgical intervention. Denver Barboza MD
== END 2017-08-10 14:29 | disposition home or self-care (01) ==
LOC: ED 09:34 → ERH 13:38 → 5RSO 15:13
PROVIDERS: ADMIT Internal Medicine; ATTEND Internal Medicine
DX: N13.2 Hydronephrosis with renal and ureteral calculous obstruction (principal); I45.10 Unspecified right bundle-branch block; N40.0 Benign prostatic hyperplasia without lower urinary tract symptoms; Z87.442 Personal history of urinary calculi; Z90.49 Acquired absence of other specified parts of digestive tract
CPT/HCPCS: 36415; 52356; 74176; 80053; 81001; 83735; 84100; 85025; 85610; 85730; 88300; 96361; 96372; 96374; 96375; 96376; 99285; C1758; C1769; C2625; C9113; G0378; J1580; J1644; J1885; J2001; J2250; J2704; J3010; J7040; J7120; Q9966

== ENCOUNTER 2018-02-02 21:48 | Emergency (ER) | payer SELFPAY ==
[2018-02-02 21:48] VITALS: BMI 25.7
[2018-02-02 22:00] VITALS: TEMP 98.1; O2SAT 98
--- NOTE | 2018-02-02 22:28 | ED PDOC ---
Arrival/HPI - General Chief Complaint: Chest Pain Time Seen by Provider: 02/02/18 22:28 Historian: Patient - History of Present Illness Narrative History of Present Illness (Text): 02/02/18 22:28 37 year old male, whose past medical history includes nephrolithiasis, RBBB, and heart murmur as a child that resolved, presents to the emergency department complaining of intermittent chest wall pain that began yesterday that began to radiate to the back today. Patient states he was at [employer] 2 days ago and went on rides. Patient denies any family history of heart attacks. Patient reports nausea and dizziness that began today, but denies any fever, chills, shortness of breath, vomiting, diarrhea, urinary symptoms, neck pain, headache, or any other complaints. PMD: Dr. Hernandez Time/Duration: 24 hours Symptom Onset: Gradual Symptom Course: Intermittent Activities at Onset: Light Context: Home Past Medical History - Provider Review Nursing Documentation Reviewed: Yes - Infectious Disease Hx of Infectious Diseases: None - Cardiac Hx Cardiac Disorders: Yes Hx Heart Murmur: Yes Other/Comment: ABNORMAL EKG - Pulmonary Hx Respiratory Disorders: No - Neurological Hx Neurological Disorder: No - HEENT Hx HEENT Disorder: No - Renal Hx Renal Disorder: No - Endocrine/Metabolic Hx Endocrine Disorders: No - Hematological/Oncological Hx Blood Disorders: No - Integumentary Hx Dermatological Disorder: No Hx Basal Cell Carcinoma: No - Musculoskeletal/Rheumatological Hx Musculoskeletal Disorders: No - Gastrointestinal Hx Gastrointestinal Disorders: Yes Other/Comment: appendectomy - Genitourinary/Gynecological Hx Genitourinary Disorders: No - Psychiatric Hx Psychophysiologic Disorder: No Hx Substance Use: No - Surgical History Hx Appendectomy: Yes Other/Comment: vasectomy 2009, nose sx - Anesthesia Hx Anesthesia: Yes Hx Anesthesia Reactions: No Hx Malignant Hyperthermia: No Family/Social History - Physician Review Nursing Documentation Reviewed: Yes Family/Social History: CVA/TIA (Grandmother). denies: CAD/[place] Smoking Status: Never Smoked Hx Alcohol Use: Yes Hx Substance Use: No Allergies/Home Meds Allergies/Adverse Reactions: Allergies mushroom Allergy (Verified 08/08/17 14:25) SWELLING Penicillins Adverse Reaction (Verified 08/08/17 14:25) NAUSEA Review of Systems - Physician Review All systems were reviewed & negative as marked: Yes - Review of Systems Constitutional: absent: Fevers, Other (Chills) Respiratory: absent: SOB Cardiovascular: Other (Chest wall pain) Gastrointestinal: Nausea. absent: Diarrhea, Vomiting Genitourinary Male: absent: Dysuria, Frequency, Hematuria Musculoskeletal: Back Pain. absent: Neck Pain Neurological: Dizziness. absent: Headache Physical Exam - Physical Exam Narrative Physical Exam (Text): Gen: VS reviewed, alert, well developed, well nourished, nontoxic, mild distress. ENT: normal pharynx. Eye: EOMI, PERRL. Neck: no JVD, supple, no adenopathy. CV: regular rate, regular rhythm, no rubs, no murmur, no gallops, S1, S2, pulses equal and strong. Pulm: Mild tenderness to the left anterior chest wall with borders of the sternum. no distress, clear to auscultation, no wheeze, no rhonchi, breath sounds equal, no rales. Abd: soft, nontender, no guarding, no rebound, no rigidity, normal bowel sounds. Back: Mild to Moderate tenderness to his right paraspinal area and the junction of scapula Ext: no edema. Skin: good color, no rash, no cyanosis. Psych: responds appropriately to questions, normal affect. Neuro: oriented x 3, CN2-12 intact grossly, motor intact, sensation intact. Vital Signs Reviewed: Yes Vital Signs Temp Pulse Resp BP Pulse Ox 02/02/18 21:56 98.1 F 67 18 145/83 98 Temperature: Afebrile Blood Pressure: Normal Pulse: Regular Respiratory Rate: Normal Appearance: Positive for: Well-Appearing, Non-Toxic, Comfortable Pain Distress: None Mental Status: Positive for: Alert and Oriented X 3 Medical Decision Making ED Course and Treatment: 02/02/18 22:28 Impression: 37 year old male presents complaining of chest wall pain that began yesterday that began to radiate to the back today. Patient also reports nausea and dizziness that vegan today. Differential Diagnosis included but are not limited to: Plan: -- EKG -- Labs -- Chest X-ray -- Reassess and disposition Prior Visits: Notes and results from previous visits were reviewed. Progress Notes: 02/02/18 21:57 EKG shows Sinus Bradycardia at 57 BPM with RBBB. No ectopy. Interpreted by me. 02/02/18 22:57 CXR Impression: As read by me, no pneumothorax, no cardiomegaly, no infiltrates 02/02/18 23:56 patient seen for low risk chest pain, heart score = 0, no sig clinical suspicion for PE or aotic dissection. patient remained stable throughout ED course and will be discharged to follow up with pcp. - Lab Interpretations Lab Results: 02/02/18 22:15 02/02/18 22:15 Lab Results 02/02/18 22:15: Sodium 144, Potassium 4.0, Chloride 104, Carbon Dioxide 29, Anion Gap 15, BUN 18, Creatinine 1.1, Est GFR ( Amer) > 60, Est GFR (Non- Af Amer) > 60, Random Glucose 128 H, Calcium 9.2, Total Bilirubin 0.5, AST 23, ALT 46, Alkaline Phosphatase 80, Troponin I < 0.01, Total Protein 6.7, Albumin 4.0, Globulin 2.7, Albumin/Globulin Ratio 1.5, Triglycerides 348 H, Cholesterol 156, LDL Cholesterol Direct 76, HDL Cholesterol 34 02/02/18 22:15: PT 12.6 H, INR 1.10 H, APTT 30.9 02/02/18 22:15: WBC 6.0, RBC 5.07, Hgb 14.7, Hct 41.9 L, MCV 82.6 D, MCH 29.0, MCHC 35.1, RDW 13.2, Plt Count 233, MPV 9.1, Gran % 60.8, Lymph % (Auto) 28.8, [place] % (Auto) 7.8 H, Eos % (Auto) 2.3, Baso % (Auto) 0.3, Gran # 3.64, Lymph # ( Auto) 1.7, [place] # (Auto) 0.5, Eos # (Auto) 0.1, Baso # (Auto) 0.02 I have reviewed the lab results: Yes - RAD Interpretation Radiology Orders: 02/02/18 22:39 CHEST PORTABLE [RAD] Stat - EKG Interpretation Interpreted by ED Physician: Yes Type: 12 lead EKG - Scribe Statement The provider has reviewed the documentation as recorded by the Arabella Perera Provider Scribe Attestation: All medical record entries made by the [place] were at my direction and personally dictated by me. I have reviewed the chart and agree that the record accurately reflects my personal performance of the history, physical exam, medical decision making, and the department course for this patient. I have also personally directed, reviewed, and agree with the discharge instructions and disposition. Disposition/Present on Arrival - Present on Arrival Any Indicators Present on Arrival: No History of DVT/PE: No History of Uncontrolled Diabetes: No Urinary Catheter: No History of Decub. Ulcer: No History Surgical Site Infection Following: None - Disposition Have Diagnosis and Disposition been Completed?: Yes Diagnosis: Chest wall pain, Thoracic back pain Disposition: HOME/ ROUTINE Disposition Time: 23:58 Patient Plan: Discharge Condition: STABLE Discharge Instructions (ExitCare): Chest Pain (ED), Upper Back Pain (DC), Costochondritis (DC) Print Language: ARMENIAN Additional Instructions: Return for any new or worsening symptoms. BRENNON KING, thank you for letting us take care of you today. Your provider was Dr. Ayo Garcia and you were treated for chest wall pain and superficial upper back pain. The emergency medical care you received today was directed at your acute symptoms. If you were prescribed any medication, please fill it and take as directed. It may take several days for your symptoms to resolve. Return to the Emergency Department if your symptoms worsen, do not improve, or if you have any other problems. Please contact your doctor or call one of the physicians/clinics you have been referred to that are listed on the Patient Visit Information form that is included in your discharge packet. Bring any paperwork you were given at discharge with you along with any medications you are taking to your follow up visit. Our treatment cannot replace ongoing medical care by a primary care provider outside of the emergency department. Thank you for allowing the [facility] team to be part of your care today. If you had an X-Ray or CT scan: A Radiologist will review the ED reading if any change in treatment is needed we will contact you. If you had a blood, urine, or wound culture: It will take several days for the results, if any change in treatment is needed we will contact you. If you had an STI test: It will take 48 hours for the results. Please call after 1 week if you have not heard back. Prescriptions: Ibuprofen [Motrin Tab] 600 mg PO QID #30 tab Forms: [employer] (Spanish), WORK NOTE
[2018-02-02 22:52] LABS: BASO # 0.02 K/mm3 (0.0-2.0); BASO % 0.3 % (0.0-3.0); EOS # 0.1 (0.0-0.7); EOS % 2.3 % (1.5-5.0); GRAN # 3.64 (1.4-6.5); GRAN % 60.8 % (50.0-68.0); HEMOGLOBIN 14.7 g/dL (14.0-18.0); LYMPH # 1.7 (1.2-3.4); LYMPH % 28.8 % (22.0-35.0); MEAN CELL VOLUME 82.6 fl (80.0-105.0); MEAN CORPUSCULAR HGB CONC 35.1 g/dl (31.0-37.0); MEAN PLATELET VOLUME 9.1 fl (7.0-11.0); MONO # 0.5 (0.1-0.6); MONO % 7.8 % (1.0-6.0); RBC 5.07 10^6/uL (3.5-6.1); RED CELL DISTRIBUTION WIDTH 13.2 % (11.5-14.5)
[2018-02-02 23:01] LABS: INR 1.1 (0.93-1.08); PARTIAL THROMBOPLASTIN TIME 30.9 Seconds (25.1-36.5); PROTHROMBIN TIME 12.6 SECONDS (9.4-12.5)
[2018-02-02 23:02] LABS: ALB/GLOB RATIO 1.5 (1.1-1.8); ALT/SGPT 46 U/L (7-56); AST/SGOT 23 U/L (17-59); BLOOD UREA NITROGEN 18 mg/dL (7-21); CALCIUM 9.2 mg/dL (8.4-10.5); GFR AFRICAN-AMERICAN > 60; GFR NON-AFRICAN AMERICAN > 60; HDL CHOLESTEROL 34 mg/dL (29-60)
[2018-02-02 23:12] LABS: LDL CHOLESTEROL 76 mg/dL (0-129); TROPONIN I < 0.01 ng/mL
[2018-02-03 00:09] VITALS: BP 116/82; PULSE 71; RESP 17
--- NOTE | 2018-02-03 09:05 | RAD ---
Date of service: 02/02/2018 HISTORY: chest pain COMPARISON: No prior. FINDINGS: LUNGS: No active pulmonary disease. PLEURA: No significant pleural effusion identified, no pneumothorax apparent. CARDIOVASCULAR: Normal. OSSEOUS STRUCTURES: No significant abnormalities. VISUALIZED UPPER ABDOMEN: Normal. OTHER FINDINGS: None. IMPRESSION: No active disease.
--- NOTE | 2018-02-03 09:21 | CARD ---
APPROVED REPORT Date of service: 02/02/2018 EKG Measurement Heart [id number] <Conclusion> Sinus bradycardia Right bundle branch block Abnormal ECG
== END 2018-02-03 00:08 | disposition home or self-care (01) ==
LOC: ED 21:48
DX: R07.89 Other chest pain (principal); M54.6 Pain in thoracic spine

== ENCOUNTER 2018-06-13 20:33 | Emergency (ER) | payer SELFPAY ==
--- NOTE | 2018-06-13 20:55 | ED PDOC ---
Arrival/HPI - General Historian: Patient - History of Present Illness Narrative History of Present Illness (Text): 06/13/18 20:49 37 y/o male, pmh including renal stone, penicillin, c/o fatigue/chest and whole body discomfort with dizziness x 1 day. Pt. stated that he feels fatigue with chest and whole bodyache today, associated with dizziness, no chest pain or palpitation, no numbness or tingling, no rash, no tearing pain, no night sweat, no dizziness, no change in vision, no diarrhea, no other medical or psychological complaints. Past Medical History - Provider Review Nursing Documentation Reviewed: Yes - Infectious Disease Hx of Infectious Diseases: None - Cardiac Hx Cardiac Disorders: Yes Hx Heart Murmur: Yes Other/Comment: ABNORMAL EKG - Pulmonary Hx Respiratory Disorders: No - Neurological Hx Neurological Disorder: No - HEENT Hx HEENT Disorder: No - Renal Hx Renal Disorder: No - Endocrine/Metabolic Hx Endocrine Disorders: No - Hematological/Oncological Hx Blood Disorders: No - Integumentary Hx Dermatological Disorder: No Hx Basal Cell Carcinoma: No - Musculoskeletal/Rheumatological Hx Musculoskeletal Disorders: No - Gastrointestinal Hx Gastrointestinal Disorders: Yes Other/Comment: appendectomy - Genitourinary/Gynecological Hx Genitourinary Disorders: No - Psychiatric Hx Psychophysiologic Disorder: No Hx Substance Use: No - Surgical History Hx Appendectomy: Yes Other/Comment: vasectomy 2009, nose sx - Anesthesia Hx Anesthesia: Yes Hx Anesthesia Reactions: No Hx Malignant Hyperthermia: No Family/Social History - Physician Review Nursing Documentation Reviewed: Yes Family/Social History: Unknown Family HX Smoking Status: Never Smoked Hx Alcohol Use: Yes Hx Substance Use: No Allergies/Home Meds Allergies/Adverse Reactions: Allergies mushroom Allergy (Verified 08/08/17 14:25) SWELLING Penicillins Adverse Reaction (Verified 08/08/17 14:25) NAUSEA Review of Systems - Review of Systems Constitutional: Fatigue. absent: Fevers Eyes: absent: Vision Changes ENT: absent: Hearing Changes Respiratory: absent: SOB, Cough Cardiovascular: absent: Chest Pain Gastrointestinal: absent: Abdominal Pain, Nausea, Vomiting Musculoskeletal: Myalgias. absent: Arthralgias, Back Pain Skin: absent: Rash, Pruritis Neurological: Dizziness. absent: Headache, Focal Weakness Psychiatric: absent: Anxiety, Depression, Suicidal Ideation Physical Exam - Systems Exam Head: Present: Atraumatic, Normocephalic Pupils: Present: PERRL Extroacular Muscles: Present: EOMI Conjunctiva: Present: Normal Ears: Present: NORMAL TM, Normal Canal. No: Erythema Mouth: Present: Moist Mucous Membranes Pharnyx: No: ERYTHEMA, EXUDATE, TONSILS ENLARGED Nose (External): Present: Atraumatic. No: Abrasion, Contusion, Laceration Nose (Internal): Present: Normal Inspection, No Active Bleeding. No: Rhinorrhea, Septal Hematoma, Epistaxis Neck: Present: Normal Range of Motion, Trachea Midline. No: Meningeal Signs, MIDLINE TENDERNESS, Paraspinal Tenderness, Lymphadenopathy Respiratory/Chest: Present: Clear to Auscultation, Good Air Exchange. No: Respiratory Distress, Accessory Muscle Use, Wheezes, Decreased Breath Sounds, Rales, Retracting, Rhonchi, Tachypneic, Tender to Palpation Cardiovascular: Present: Regular Rate and Rhythm, Normal S1, S2. No: Murmurs Abdomen: No: Tenderness, Distention, Peritoneal Signs, Rebound, Guarding Back: Present: Normal Inspection. No: CVA Tenderness, Midline Tenderness, Paraspinal Tenderness, Pain with Leg Raise Upper Extremity: Present: Normal Inspection. No: Cyanosis, Edema Lower Extremity: Present: Normal Inspection. No: Edema Neurological: Present: GCS=15, CN II-XII Intact, Speech Normal, Motor Func Grossly Intact, Gait Normal, Memory Normal Skin: Present: Warm, Dry, Normal Color. No: Rashes Psychiatric: Present: Alert, Oriented x 3, Normal Insight, Normal Concentration Medical Decision Making ED Course and Treatment: 06/13/18 21:00 -Labs -CT head -CXR -EKG -IVF/tylenol -Orthostatic v/s -Observe and reassess 06/14/18 00:05 -EKG: NSR @ 82 BPM, chronic RBBB, no acute ST or T wave changes compared with previous ekg. -CT Head Normal noncontrast brain -Chest xray ER wet read: no active disease -Labs show no acute significant findings except ALT 133 (no abdominal pain) -Mg within normal limit -Trop within normal limit -UA show no UTI -Rapid flu is negative -Orthostatic v/s is negative. -Pt. feels well, asymptomatic now, walking around, no focal neurological deficits. -Discharge home with tylenol, tamiflu, education on follow up with your own pmd and neurologist within 2 days, return to the ER for any new or worsening signs or symptoms. - RAD Interpretation Radiology Orders: CT Head: EXAM: CT Head without Intravenous Contrast. CLINICAL HISTORY: Dizziness TECHNIQUE: Axial computed tomography images of the head/brain without intravenous contrast. 862.23 mGy-cm COMPARISON: None provided. FINDINGS: BRAIN Normal noncontrast brain VENTRICLES: No hydrocephalus. ORBITS: The orbits are unremarkable. SINUSES AND MASTOIDS: The paranasal sinuses and mastoid air cells are clear. BONES: No fracture. SOFT TISSUES: Unremarkable. IMPRESSION: Normal noncontrast brain Electronically signed on Jun 13, 2018 10:21:35 PM EST by: Ramon Villarreal M.D., Certified by [facility] Chest xray: no active disease Wire Dropper: Radiologist - PA / DIESEL ENGINE FITTER / Resident Statement / has reviewed & agrees with the documentation as recorded. Disposition/Present on Arrival - Present on Arrival Any Indicators Present on Arrival: No History of DVT/PE: No History of Uncontrolled Diabetes: No Urinary Catheter: No History of Decub. Ulcer: No History Surgical Site Infection Following: None - Disposition Have Diagnosis and Disposition been Completed?: Yes Diagnosis: Viral syndrome Disposition: HOME/ ROUTINE Disposition Time: 00:06 Patient Plan: Discharge Condition: IMPROVED Additional Instructions: -Discharge home with tamiflu/tylenol, education on follow up with your own pmd and neurologist within 2 days, return to the ER for any new or worsening signs or symptoms. Prescriptions: Acetaminophen [Tylenol] 2 cap PO QID PRN #30 capsule PRN Reason: other Oseltamivir Phosphate [Tamiflu] 75 mg PO BID #10 capsule Referrals: Karma Glass MD [Staff Provider] - Follow up with primary [facility] [Outside] - Follow up with primary [facility] [Outside] - Follow up with primary Forms: WORK NOTE
[2018-06-13] MEDS ORDERED: Sodium Chloride 0.9% 1,000 ML IV STA (20:56)
[2018-06-13 20:57] VITALS: BMI 29.6
[2018-06-13 21:57] LABS: ALB/GLOB RATIO 1.4 (1.1-1.8); ALBUMIN 4.2 g/dL (3.0-4.8); ALT/SGPT 133 U/L (7-56); AST/SGOT 59 U/L (17-59); BLOOD UREA NITROGEN 16 mg/dL (7-21); CALCIUM 8.8 mg/dL (8.4-10.5); GFR NON-AFRICAN AMERICAN > 60
[2018-06-13 22:08] LABS: TROPONIN I < 0.01 ng/mL
[2018-06-13 22:19] LABS: HEMOGLOBIN 14.6 g/dL (14.0-18.0); MEAN CELL VOLUME 85.4 fl (80.0-105.0); MEAN CORPUSCULAR HEMOGLOBIN 29.6 pg (25.0-35.0); MEAN CORPUSCULAR HGB CONC 34.6 g/dl (31.0-37.0); RBC 4.94 10^6/uL (3.5-6.1); RED CELL DISTRIBUTION WIDTH 13.3 % (11.5-14.5); WHITE BLOOD COUNT 4.7 10^3/uL (4.5-11.0)
[2018-06-13 22:20] LABS: BASO # 0.01 K/mm3 (0.0-2.0); BASO % 0.2 % (0.0-3.0); EOS # 0.1 (0.0-0.7); EOS % 1.3 % (1.5-5.0); GRAN # 2.94 (1.4-6.5); LYMPH # 1.2 (1.2-3.4); LYMPH % 24.7 % (22.0-35.0); MEAN PLATELET VOLUME 8.8 fl (7.0-11.0); MONO # 0.6 (0.1-0.6); MONO % 11.8 % (1.0-6.0)
[2018-06-13 23:55] LABS: PH,URINE 6.5 (4.7-8.0); URINE BILIRUBIN NEGATIVE (NEGATIVE); URINE BLOOD NEGATIVE (NEGATIVE); URINE GLUCOSE (UA) NEGATIVE (NEGATIVE); URINE LEUKOCYTE ESTERASE NEGATIVE Leu/uL (NEGATIVE); URINE PROTEIN NEGATIVE mg/dL (<30 mg/dL); URINE UROBILINOGEN 0.2 E.U./dL (<1 E.U./dL)
[2018-06-13 23:56] LABS: URINE APPEARANCE CLEAR (CLEAR); URINE COLOR YELLOW (YELLOW)
[2018-06-14 00:13] VITALS: BP 134/84; PULSE 73; RESP 18; TEMP 98.6; O2SAT 97
[2018-06-14 00:40] LABS: BARBITURATES, UR NEGATIVE (NEGATIVE); BENZODIAZEPINES, UR NEGATIVE (NEGATIVE); OPIATES, UR NEGATIVE (NEGATIVE); PHENCYCLIDINE, UR NEGATIVE (NEGATIVE)
--- NOTE | 2018-06-14 09:56 | CT ---
Date of service: 06/13/2018 PROCEDURE: CT HEAD WITHOUT CONTRAST. HISTORY: Dizziness COMPARISON: None available. TECHNIQUE: Axial computed tomography images were obtained through the head/brain without intravenous contrast. Radiation dose: Total exam DLP = 862.23 mGy-cm. This CT exam was performed using one or more of the following dose reduction techniques: Automated exposure control, adjustment of the mA and/or kV according to patient size, and/or use of iterative reconstruction technique. FINDINGS: HEMORRHAGE: No intracranial hemorrhage. BRAIN: No mass effect or edema. No atrophy or chronic microvascular ischemic changes. VENTRICLES: Unremarkable. No hydrocephalus. CALVARIUM: Unremarkable. PARANASAL SINUSES: Unremarkable as visualized. No significant inflammatory changes. MASTOID AIR CELLS: Unremarkable as visualized. No inflammatory changes. OTHER FINDINGS: None. IMPRESSION: Normal CT of the Head.
--- NOTE | 2018-06-14 12:57 | RAD ---
Date of service: 06/13/2018 HISTORY: medical clearance COMPARISON: Comparison chest dated 02/02/2018. FINDINGS: LUNGS: No active pulmonary disease. PLEURA: No significant pleural effusion identified, no pneumothorax apparent. CARDIOVASCULAR: No aortic atherosclerotic calcification present. Normal cardiac size. No pulmonary vascular congestion. OSSEOUS STRUCTURES: No significant abnormalities. VISUALIZED UPPER ABDOMEN: Normal. OTHER FINDINGS: None. IMPRESSION: No active disease.
--- NOTE | 2018-06-14 17:41 | CARD ---
APPROVED REPORT Date of service: 06/13/2018 EKG Measurement Heart [id number] <Conclusion> Normal sinus rhythm Right bundle branch block Abnormal ECG
== END 2018-06-14 00:25 | disposition home or self-care (01) ==
LOC: ED 20:33
DX: B34.9 Viral infection, unspecified (principal)
CPT/HCPCS: 70450; 71045; 80053; 81003; 83735; 84484; 85025; 87804; 93005; 96360; 99285; G0480; J7030

== ENCOUNTER 2018-10-28 17:17 | Emergency (ER) | payer OTHER ==
[2018-10-28 17:39] VITALS: BMI 16.4
[2018-10-28 17:42] VITALS: RESP 18; O2SAT 98
--- NOTE | 2018-10-28 17:57 | ED PDOC ---
Arrival/HPI - General Chief Complaint: Lower Extremity Problem/Injury Time Seen by Provider: 10/28/18 17:41 Historian: Patient - History of Present Illness Narrative History of Present Illness (Text): 10/28/18 17:54 38-year-old male presents today with a one-month history of left ankle pain. Patient states a month ago he was ice skating and fell injuring the ankle. Patient thought that over time the pain would go away but patient states the pain has not improved in the past few days he has been getting intermittent sharp stabbing pain over the lateral malleolus. No medications have been taken for pain at home. Patient denies calf pain. He denies numbness weakness or tingling in the extremity. Patient states the pain is worse with range of motion of the ankle or when he steps with walking. Past Medical History - Provider Review Nursing Documentation Reviewed: Yes - Travel History Have you recently traveled outside [place] w/in the past 3 mons?: No - Infectious Disease Hx of Infectious Diseases: None - Cardiac Hx Cardiac Disorders: Yes Hx Heart Murmur: Yes Other/Comment: ABNORMAL EKG - Pulmonary Hx Respiratory Disorders: No - Neurological Hx Neurological Disorder: No - HEENT Hx HEENT Disorder: No - Renal Hx Renal Disorder: No - Endocrine/Metabolic Hx Endocrine Disorders: No - Hematological/Oncological Hx Blood Disorders: No - Integumentary Hx Dermatological Disorder: No Hx Basal Cell Carcinoma: No - Musculoskeletal/Rheumatological Hx Musculoskeletal Disorders: No - Gastrointestinal Hx Gastrointestinal Disorders: Yes Other/Comment: appendectomy - Genitourinary/Gynecological Hx Genitourinary Disorders: No - Psychiatric Hx Psychophysiologic Disorder: No Hx Substance Use: No - Surgical History Hx Appendectomy: Yes Other/Comment: vasectomy 2009, nose sx - Anesthesia Hx Anesthesia: Yes Hx Anesthesia Reactions: No Hx Malignant Hyperthermia: No Family/Social History - Physician Review Nursing Documentation Reviewed: Yes Family/Social History: Unknown Family HX Smoking Status: Never Smoked Hx Alcohol Use: Yes Hx Substance Use: No Allergies/Home Meds Allergies/Adverse Reactions: Allergies mushroom Allergy (Verified 10/28/18 17:41) SWELLING Penicillins Adverse Reaction (Verified 10/28/18 17:41) NAUSEA Review of Systems - Review of Systems Constitutional: absent: Fatigue, Fevers Respiratory: absent: SOB, Cough Cardiovascular: absent: Chest Pain, Palpitations Gastrointestinal: absent: Abdominal Pain, Nausea, Vomiting Musculoskeletal: Arthralgias (left ankle pain) Skin: absent: Rash, Pruritis Psychiatric: absent: Anxiety, Depression Physical Exam Vital Signs Reviewed: Yes Vital Signs Pulse Resp Pulse Ox 10/28/18 17:42 66 18 98 Temperature: Afebrile Blood Pressure: Normal Pulse: Regular Respiratory Rate: Normal Appearance: Positive for: Well-Appearing, Non-Toxic, Comfortable Pain Distress: None Mental Status: Positive for: Alert and Oriented X 3 - Systems Exam Head: Present: Atraumatic Respiratory/Chest: Present: Clear to Auscultation Cardiovascular: Present: Regular Rate and Rhythm Lower Extremity: Present: NORMAL PULSES, Normal ROM, Tenderness (left ankle; no edema, no erythema; minimal tenderness over the lateral malleolus; no achilles tendon tenderness. no edema, no erythema; no ecchymosis; sensation and distal pulses intact. cap refill <2. ), Neurovascularly Intact, Capillary Refill < 2 s. No: CALF TENDERNESS, Swelling, Erythema, Deformity Neurological: Present: GCS=15, Speech Normal, Gait Normal Skin: Present: Warm, Dry, Normal Color. No: Rashes Psychiatric: Present: Alert Medical Decision Making ED Course and Treatment: 10/28/18 18:02 Patient nontoxic well-appearing in no distress with stable vital signs X-rays of the left ankle: No fracture Patient refused medications for pain Patient placed in aircast. crutches given for ambulation. I discussed all results in depth with the patient advised to followup with the orthopedist within the next 2 days. Advised return if symptoms worsen persist or new symptoms develop Impression: Ankle pain Motrin every 6 hours as needed for pain. Rest, ice, compression, elevation Use crutches for ambulation Followup with the orthopedist within the next 2 days Followup with primary care physician within the next 2 days Return if symptoms worsen persist or if new symptoms develop - RAD Interpretation Radiology Orders: 10/28/18 17:53 ANKLE LEFT 3 VIEWS ROUTINE [RAD] Stat Disposition/Present on Arrival - Present on Arrival Any Indicators Present on Arrival: No History of DVT/PE: No History of Uncontrolled Diabetes: No Urinary Catheter: No History of Decub. Ulcer: No History Surgical Site Infection Following: None - Disposition Have Diagnosis and Disposition been Completed?: Yes Diagnosis: Ankle pain Disposition: HOME/ ROUTINE Disposition Time: 18:02 Patient Plan: Discharge Condition: GOOD Discharge Instructions (ExitCare): Ankle Sprain Additional Instructions: Motrin every 6 hours as needed for pain. Rest, ice, compression, elevation Use crutches for ambulation Followup with the orthopedist within the next 2 days Followup with primary care physician within the next 2 days Return if symptoms worsen persist or if new symptoms develop Referrals: [facility] [Outside] - Follow up with primary [facility] [place] [Outside] - Follow up with primary [facility] [Outside] - Follow up with primary Hany Lee DO [Staff Provider] - Follow up with primary Hakeem Lewis DPM [Staff Provider] - Follow up with primary Lobo Gomez DPM [Staff Provider] - Follow up with primary Forms: [employer] (Irish), WORK NOTE
[2018-10-28 18:21] VITALS: TEMP 98
[2018-10-28 19:21] VITALS: BP 124/78; PULSE 65
--- NOTE | 2018-10-29 10:13 | RAD ---
Date of service: 10/28/2018 PROCEDURE: Left Ankle Radiographs. HISTORY: ankle pain x 1 month, hx of fall COMPARISON: None available. TECHNIQUE: 3 views obtained. FINDINGS: BONES: Normal. No fracture. JOINTS: Normal. No osteoarthritis. Ankle mortise maintained. Talar dome intact SOFT TISSUES: Normal. OTHER FINDINGS: None. IMPRESSION: Normal left ankle radiographs.
== END 2018-10-28 19:22 | disposition home or self-care (01) ==
LOC: ED 17:17
DX: M25.572 Pain in left ankle and joints of left foot (principal)